=== PATIENT | male | born 1965 | race Two or more races ===

== ENCOUNTER 2020-11-10 11:53 | Outpatient (REF) | payer OTHER, MEDICARE, SELFPAY ==
[2020-11-10 13:08] LABS: Glucose Urine UA NEG (NEG); Leukocyte Esterase Urine NEG (NEG); Nitrite Urine NEG (NEG); Specific Gravity - Urine 1.025 (1.005-1.025); Urine Blood NEG (NEG); Urine Ketones 5 MG/DL (NEG); Urine Protein NEG (NEG-TRACE)
[2020-11-10 13:11] LABS: Appearance Urine CLEAR; Color Urine YELLOW
== END 2020-11-10 11:54 | disposition home or self-care (01) ==
LOC: HO.LNP 11:53
PROVIDERS: Visit Provider Family Medicine
DX: Z00.00 Encounter for general adult medical examination without abnormal findings (principal); R41.82 Altered mental status, unspecified; R30.0 Dysuria
CPT/HCPCS: 81003; 87086

== ENCOUNTER 2021-07-27 09:53 | Outpatient (REF) | payer OTHER, MEDICARE, SELFPAY ==
[2021-07-27 11:29] LABS: Hematocrit 43.4 % (42.0-52.0); Hemoglobin 13.7 g/dl (14.0-18.0); Mean Corpuscular HGB Conc 31.6 g/dl (31.0-36.0); Mean Corpuscular Hemoglobin 28.1 pg (27.0-33.0); Mean Corpuscular Volume 88.9 fL (80.0-98.0); Mean Platelet Volume 11.3 fL (9.4-12.4); Platelet Count 199 X10*3/uL (160-400); Red Blood Count 4.88 X10*6/uL (4.60-5.80); Red Cell Distribution Width 13.9 % (11.0-16.0); White Blood Count 6.1 X10*3/uL (4.8-10.8)
[2021-07-27 11:46] LABS: Alanine Aminotransferase 16 U/L (0-40); Alkaline Phosphatase 67 U/L (39-117); Anion Gap 11 (12-20); Aspartate Amino Transferase 12 U/L (5-37); Bilirubin Total 0.2 mg/dL (0.0-1.0); Blood Urea Nitrogen 26 mg/dL (9-16); Calcium 9.5 mg/dL (8.4-10.2); Carbon Dioxide 30 mmol/L (22-29); Chloride 104 mmol/L (96-108); Cholesterol 131 mg/dL; Estimated Glomerular Filt Rate 48; Glucose Random 261 mg/dL (60-115); HDL Cholesterol 35 mg/dL; LDL Cholesterol Calculated 71 mg/dl; Potassium 3.8 mmol/L (3.3-5.1); Sodium 141 mmol/L (135-145); Total Protein 7.1 g/dL (6.5-8.0); Triglycerides 129 mg/dL
[2021-07-27 12:05] LABS: Prostate Specific Antigen Scr 0.32 ng/mL (<0.05-4.0)
== END 2021-07-27 09:54 | disposition home or self-care (01) ==
LOC: HO.WFDLDS 09:53
PROVIDERS: Visit Provider Hospitalist
DX: Z00.00 Encounter for general adult medical examination without abnormal findings (principal); Z12.5 Encounter for screening for malignant neoplasm of prostate
CPT/HCPCS: 36415; 80053; 80061; 84153; 84443; 85027

== ENCOUNTER 2021-11-28 12:03 | Outpatient (REF) | payer OTHER, MEDICARE, SELFPAY ==
[2021-11-28 13:45] LABS: Anion Gap 13 (12-20); Blood Urea Nitrogen 21 mg/dL (9-16); Calcium 9.2 mg/dL (8.4-10.2); Carbon Dioxide 29 mmol/L (22-29); Chloride 102 mmol/L (96-108); Estimated Glomerular Filt Rate > 60; Glucose Random 170 mg/dL (60-115); Sodium 140 mmol/L (135-145)
== END 2021-11-28 12:04 | disposition home or self-care (01) ==
LOC: HO.WFDLDS 12:03
PROVIDERS: Visit Provider Hospitalist
DX: R74.8 Abnormal levels of other serum enzymes (principal)
CPT/HCPCS: 36415; 80048

== ENCOUNTER 2022-08-22 12:42 | Outpatient (REF) | payer OTHER, MEDICARE, SELFPAY ==
[2022-08-22 14:25] LABS: Hematocrit 46.2 % (42.0-52.0); Hemoglobin 14.9 g/dl (14.0-18.0); Mean Corpuscular HGB Conc 32.3 g/dl (31.0-36.0); Mean Corpuscular Volume 86.7 fL (80.0-98.0); Mean Platelet Volume 10.9 fL (9.4-12.4); Platelet Count 260 X10*3/uL (160-400); Red Blood Count 5.33 X10*6/uL (4.60-5.80); White Blood Count 6.4 X10*3/uL (4.8-10.8)
[2022-08-22 15:20] LABS: Alanine Aminotransferase < 5 U/L (0-40); Albumin Level 4.4 g/dL (3.5-5.0); Alkaline Phosphatase 69 U/L (39-117); Anion Gap 13 (12-20); Aspartate Amino Transferase 12 U/L (5-37); Bilirubin Total 0.6 mg/dL (0.0-1.0); Blood Urea Nitrogen 22 mg/dL (9-16); Calcium 9.5 mg/dL (8.4-10.2); Carbon Dioxide 31 mmol/L (22-29); Chloride 101 mmol/L (96-108); Cholesterol 202 mg/dL; Estimated Glomerular Filt Rate > 60; Glucose Fasting 124 mg/dL (60-99); HDL Cholesterol 40 mg/dL; LDL Cholesterol Calculated 137 mg/dl; Potassium 4.6 mmol/L (3.3-5.1); Sodium 140 mmol/L (135-145); Total Protein 7.2 g/dL (6.5-8.0); Triglycerides 129 mg/dL
== END 2022-08-22 12:43 | disposition home or self-care (01) ==
LOC: HO.WFDLDS 12:42
PROVIDERS: Visit Provider Hospitalist
DX: Z00.00 Encounter for general adult medical examination without abnormal findings (principal); I10 Essential (primary) hypertension
CPT/HCPCS: 36415; 80053; 80061; 84443; 85027

== ENCOUNTER → 2022-11-01 22:30 | Outpatient (BNVA) | payer OTHER, MEDICARE, SELFPAY | PROVIDERS: PCP Hospitalist; Visit Provider Psychiatry & Neurology Psychiatry ==

== ENCOUNTER 2022-11-26 15:41 | Outpatient (AMB) | payer OTHER, MEDICARE, SELFPAY ==
[2022-11-26 15:45] VITALS: BP 136/70; PULSE 95; RESP 13; TEMP 36.2; O2SAT 97; BMI 33.7
--- NOTE | 2022-11-26 15:45 | MHC.PC.OV ---
Vital Signs 11/26/22 15:45 Height 5 ft 7 in Weight 215 lb 8 oz BMI 33.7 BP 136/70 Blood Pressure Location Rt brachial Position Sitting Respiration 13 Pulse 95 Pulse Source Pulse Oximeter Temp 97.2 F Temp Source Temporal Artery Scan Pulse Oximetry (%) 97 Oxygen Delivery Method Room Air Intake Visit Reasons: [facility] 12/13/22 - Battery Replacement DBS System, Preop Physical Intake Note: Patient is here for a preop physical. Foreign Food Cook Specialty Required: No Accompanied by: Self / Same As Patient Allergies Inhaled Anesthetics (Halogen Based) Allergy (Intermediate, Verified 11/26/22 16:10) rash Medication List - Last Reconciled 11/26/22 by Chris Jacques CNP atropine 1% 0 drps sublingual carbidopa-levodopa 25-100 mg 3 tabs PO carbidopa-levodopa 50-200 mg ER 1 tab PO BEDTIME donepezil 10 mg PO DAILY entacapone (Comtan) 200 mg PO .5x day lamotrigine 300 mg (2 x 150 mg) PO BEDTIME lisinopril 5 mg PO DAILY melatonin 9 mg PO BEDTIME metformin 1,000 mg (2 x 500 mg) PO BID mirabegron ER 25 mg PO DAILY simvastatin 20 mg PO DAILY walker As directed Tobacco use date assessed: 11/26/22 Dental Screening Dental Screen Date: 11/26/22 Did you have a dental visit in the last 12 months?: No Did you have a dental problem in the last 6 months where you did not have access to dental care?: No Was dental information given to patient?: Patient has dentist HPI HPI Comments History of Present Illness Details 57-year-old male presents for preop exam. He notes that he has an upcoming surgery for battery replacement of Deep Brain Stimulation unit on the right side of his chest. He has a 2nd unit to the left side of his chest He has history of Parkinson disease, type 2 diabetes, hypertension, hyperlipidemia, and asthma He notes that he takes his medications as prescribed No acute symptoms today He reports psoriasis rash to his face, arms, and trunk. He notes that the rash is mildly itchy. His PCP referred him to Dermatology on 10/2021; he states he was told by Dermatology there was no available openings. [facility] Medical History Asthma Bipolar 1 disorder Constipation Depression High blood pressure High cholesterol Parkinson disease Psoriasis Seizure Sleep apnea Type 2 diabetes mellitus Surgical History S/P deep brain stimulator placement Family History (Updated 11/26/22 @ 15:57 by Maura Ellison MA) Mother Diabetes Gastro-esophageal reflux Heart problem High blood pressure Father Prostate cancer Blood clot in vein Son Autism Food allergy Daughter Generalized anxiety disorder Eosinophilic esophagitis Other Mental health disorder Social History Housing: House Patient Tobacco Use Status: Never used Tobacco e-Cigarette/Vaping Use: Never Used Second Hand Smoke Exposure: No service: No Current occupational status: retired Current occupational exposures/hazards: No Cognitive needs: No Hearing needs: No Vision needs: No Questionnaire Thrive Questionnaire Date Thrive assessed: 08/22/22 DYLAN-7 AMB Questionnaire DYLAN-7 Date DYLAN - 7 assessed: 08/22/22 Source: Developed by Drs. Bowen Zaragoza, Hattie Og, Adonis Stephens and colleagues, with an educational elisha from [employer]. Review of Systems Const Details: Const Denies chills, Denies fatigue, Denies fever(s), Denies headache(s) and Denies weakness ENT Denies dizziness and Denies headache(s) Card Denies chest pain, Denies lightheadedness, Denies dyspnea and Denies other (Palpitations) Resp Denies cough, Denies dyspnea, Denies wheezing and Denies other ( shortness of breath) GI Denies abdominal pain, Denies melena, Denies hematochezia, Denies change in bowel habits, Denies dyspepsia and Denies nausea Denies hematuria and Denies dysuria Musc Denies abnormal gait, Denies myalgias, Denies arthralgias, Denies numbness and Denies tingling Skin/Breast Denies rash, Denies unusual bruising and Denies wounds Neuro Denies abnormal gait, Denies dizziness, Denies headache(s), Denies memory loss, Denies numbness, Denies Sensory deficit (Neuro), Denies tingling and Denies weakness Psych Denies anxiety and Denies depression Endo Denies fatigue Aller/Immun Denies wheezing Physical exam (Primary Care) Vital Signs: Last Vital Signs Temp 97.2 F 11/26/22 15:45 Pulse 95 11/26/22 15:45 Resp 13 11/26/22 15:45 BP 136/70 11/26/22 15:45 Pulse Ox 97 11/26/22 15:45 Oxygen Delivery Method Room Air 11/26/22 15:45 BMI result Body Mass Index 33.7 Tobacco/Smoking Status: Tobacco use Status Tobacco use date assessed 11/26/22 11/26/22 15:58 Patient Tobacco Use Status Never used Tobacco 11/26/22 15:58 e-Cigarette/Vaping Use Never Used 11/26/22 15:58 Thrive Assessment: Date of Thrive Assessment Date Thrive assessed 08/22/22 11/26/22 15:58 Const Other: General: no acute distress and well developed Nutritional Appearance: well nourished Orientation/consciousness: patient oriented x3 HENMT Head: Yes normocephalic and Yes atraumatic Eyes General: appearance normal, both eyes and all related structures Pupils: Equal, round and reactive pupils present EOM: EOMs intact bilaterally Resp Effort & Inspection: normal respiratory effort Auscultation: clear to auscultation bilaterally Cardio Rate: regular rate Rhythm: regular rhythm Heart sounds: S1 normal heart sound present, S2 normal heart sound present, no gallops, no murmurs and no rubs GI Palpation (GI): No Abdominal aortic bruit present, Soft to palpation, nontender, No hepatosplenomegaly present and No Rebound tenderness present Auscultation: normal bowel sounds General: Yes no CVA tenderness Back/Spine/Pelvis Back: no CVA tenderness Cervical Spine: cervical ROM normal and No Cervical spine tenderness Thoracic/Lumbar Spine: thoraco-lumbar ROM normal, No pain with thoraco-lumbar ROM, No thoracic spinal tenderness and No lumbar spinal tenderness Extrem General: Yes normal to inspection, No edema and No calf tenderness Skin General: warm and dry. Normal skin color. Normal skin turgor Lesions: no lesions Rashes: Dry, silvery patches to the face, forearms, and trunk; consistent with psoriasis Trauma: no lacerations or abrasions Wounds: no wounds Nails: normal Neuro General: patient oriented x3, unsteady gait Cranial nerves: Yes Equal, round and reactive pupils present Cognition (Neuro): normal cognition Gait exam (Neuro): Unsteadyl gait present Sensory Exam: No Sensory deficit (Neuro) Affect: normal affect Assessment and Plan Assessment & Plan (1) Preop examination: Code(s): Z01.818 - Encounter for other preprocedural examination Plan: Physical exam normal per baseline Patient is medically stable at this time (2) Psoriasis: Code(s): L40.9 - Psoriasis, unspecified Plan: Reports psoriasis rash to his face, arms, and trunk. He notes that the rash is mildly itchy. His PCP referred him to Dermatology on 10/2021; he states he was told by Dermatology there was no available openings. Dry, silvery patches to the face, forearms, and trunk; consistent with psoriasis Use mild soap and apply lotion to dry skin Referred to dermatology Follow-up with worsening signs and symptoms Follow-up with PCP in 3 months for diabetes and hypertension Verbalized understanding and agreed with treatment plan. Orders: Referrals Dermatology Referral L40.9 - Psoriasis, unspecified Coding Level of Care Code Est Pt Level 3 (82701) Diagnoses Preop examination Z01.818 Psoriasis L40.9
== END 2022-11-26 16:28 | disposition home or self-care (01) ==
PROVIDERS: PCP Hospitalist; Visit Provider Nurse Practitioner Family
DX: Z01.818 Encounter for other preprocedural examination (principal); L40.9 Psoriasis, unspecified
CPT/HCPCS: 99213

== ENCOUNTER 2023-03-07 15:00 | Outpatient (AMB) | payer OTHER, MEDICARE, SELFPAY ==
--- NOTE | 2023-03-07 14:24 | MHC.OFFVISPS ---
Intake Intake Visit Reasons: depression Allergies Inhaled Anesthetics (Halogen Based) Allergy (Intermediate, Verified 11/26/22 16:10) rash Medication List - Last Reconciled 03/07/23 by Kaz Jackson MD atropine 1% 0 drps sublingual carbidopa-levodopa 25-100 mg 3 tabs PO carbidopa-levodopa 50-200 mg ER 1 tab PO BEDTIME donepezil 10 mg PO DAILY entacapone (Comtan) 200 mg PO .5x day lamotrigine 300 mg (2 x 150 mg) PO BEDTIME lisinopril 5 mg PO DAILY metformin 1,000 mg (2 x 500 mg) PO BID mirabegron ER 25 mg PO DAILY simvastatin 20 mg PO DAILY walker As directed HPI- Psychiatric Chief Complaint: depression HPI Narrative: pt seen telehealth mood stable in the background. Patient somewhat difficult to understand he remains independent with ADLs he does use a walker history of bipolar disorder manic episodes but no manic or significant depressive episode an extended period of time patient is state on Lamictal he is on clonazepam 0.5 mg at bedtime to be discontinued Past Psychiatric History: hx of bipolar disorder Mental Status Exam Mental Status Exam Narrative: Speech slurred and halting Patient Appearance: Fatigued Level of Consciousness: Awake Patient Behavior: Appropriate Mood Description: Calm Telehealth Telehealth Location of provider rendering services: practice address Location of patient: address on file Patient Identification confirmed using: Name, : Yes Telehealth method: video Patient verbally consented to treatment: Yes Patient verbally consented to billing insurance company: Yes Minutes spent on Phone/Video with Pt.: 15 Assessment and Plan Assessment & Plan (1) Bipolar 1 disorder: Status: Acute Code(s): F31.9 - Bipolar disorder, unspecified (2) Parkinson disease: Status: Acute Code(s): G20 - Parkinson's disease Plan Continue Lamictal encourage discontinuation clonazepam has progressed Parkinson's disease remains at home may end up needing nursing care at some point difficulty with ambulation swallowing had early progressive Parkinson's disease his being taking care of at home Medications: Refilled lamotrigine 300 mg (2 x 150 mg) PO BEDTIME 180 tabs 1RF Counseling and coordination of Care Medication management counseling: Effectiveness, Side effects and Dosing range Diagnosis and Prognosis Counseling: Adequacy of current interventions Details: I spent [] minutes reviewing the record, seeing the patient and documenting in the medical record. Counseling provided to the patient/caregiver as outlined below. Addressed patient/caregiver concerns regarding current medication regime including effective adherence. Addressed patient/caregiver concerns regarding diagnosis and prognosis including accuracy of diagnosis, prognosis over time, impact of diagnosis. Addressed patient/caregiver concerns regarding impact of recent stressors. [facility] Medical History (Updated 04/14/23 @ 16:21 by Kaz Jackson MD) Bipolar 1 disorder Constipation Psoriasis High blood pressure High cholesterol Depression Seizure Asthma Sleep apnea Type 2 diabetes mellitus Parkinson disease Surgical History S/P deep brain stimulator placement Family History (Updated 11/26/22 @ 15:57 by Maura Ellison MA) Mother Diabetes Gastro-esophageal reflux Heart problem High blood pressure Father Prostate cancer Blood clot in vein Son Autism Food allergy Daughter Generalized anxiety disorder Eosinophilic esophagitis Other Mental health disorder Social History Housing: House Patient Tobacco Use Status: Never used Tobacco e-Cigarette/Vaping Use: Never Used Second Hand Smoke Exposure: No service: No Current occupational status: retired Current occupational exposures/hazards: No Cognitive needs: No Hearing needs: No Vision needs: No Coding Level of Care Code Est Pt Level 3 (01900) Diagnoses Bipolar 1 disorder F31.9 Parkinson disease G20
== END 2023-03-07 15:27 | disposition home or self-care (01) ==
LOC: HO.HOP 15:00
PROVIDERS: PCP Hospitalist; Visit Provider Psychiatry & Neurology Psychiatry
DX: F31.31 Bipolar disorder, current episode depressed, mild (principal); G20.A1 Parkinson's disease without dyskinesia, without mention of fluctuations
CPT/HCPCS: 99213

== ENCOUNTER → 2023-03-07 15:00 | Outpatient (BNVA) | payer OTHER, MEDICARE, SELFPAY | PROVIDERS: PCP Hospitalist; Visit Provider Psychiatry & Neurology Psychiatry | DX: F31.9 Bipolar disorder, unspecified (principal); G20.A1 Parkinson's disease without dyskinesia, without mention of fluctuations; Z96.82 Presence of neurostimulator | CPT/HCPCS: 99212 ==

== ENCOUNTER 2023-10-25 16:57 | Outpatient (AMB) | payer OTHER, MEDICARE, SELFPAY ==
[2023-10-25 17:06] VITALS: BP 130/76; PULSE 92; O2SAT 96; BMI 36.8
--- NOTE | 2023-10-25 17:06 | MHC.PC.OV ---
Vital Signs 10/25/23 17:06 Height 5 ft 7 in Weight 235 lb BMI 36.8 BP 130/76 Blood Pressure Location Lt brachial Position Sitting Pulse 92 Pulse Source Pulse Oximeter Pulse Oximetry (%) 96 Oxygen Delivery Method Room Air Intake Visit Reasons: diabetic f/u Intake Note: Patient is here for diabetic check up. Allergies Inhaled Anesthetics (Halogen Based) Allergy (Intermediate, Verified 10/25/23 17:18) rash Medication List - Last Reviewed 10/25/23 by Fabiola Mcmanus CMA carbidopa-levodopa 25-100 mg 3 tabs PO carbidopa-levodopa 50-200 mg ER 1 tab PO BEDTIME donepezil 10 mg PO DAILY entacapone (Comtan) 200 mg PO .5x day lamotrigine 300 mg (2 x 150 mg) PO BEDTIME lisinopril 5 mg PO DAILY melatonin 3 mg PO BEDTIME PRN metformin 1,000 mg (2 x 500 mg) PO BID mirabegron ER 25 mg PO DAILY simvastatin 20 mg PO DAILY walker As directed Tobacco use date assessed: 10/25/23 Dental Screening Dental Screen Date: 10/25/23 Did you have a dental visit in the last 12 months?: No Did you have a dental problem in the last 6 months where you did not have access to dental care?: No Was dental information given to patient?: Patient has dentist HPI HPI Comments History of Present Illness Details 58-year-old male presents for diabetes follow-up He does not currently has a PCP. His former PCP is NORBERTO who is no longer with the practice. His last office visit with his PCP was in 08/22/2022. His last A1c was 7.0 in 08/29/2021 He was on Metformin 1000mg BID which he notes he has not taken after he ran out of refill several months ago No acute symptoms [facility] Medical History (Updated 10/25/23 @ 17:26 by Chris Jacques CNP) Bipolar 1 disorder Constipation Psoriasis High blood pressure High cholesterol Depression Seizure Asthma Sleep apnea Type 2 diabetes mellitus Parkinson disease Surgical History S/P deep brain stimulator placement Family History (Updated 11/26/22 @ 15:57 by HU Portillo) Mother Diabetes Gastro-esophageal reflux Heart problem High blood pressure Father Prostate cancer Blood clot in vein Son Autism Food allergy Daughter Generalized anxiety disorder Eosinophilic esophagitis Other Mental health disorder Social History Housing: House Patient Tobacco Use Status: Never used Tobacco e-Cigarette/Vaping Use: Never Used Second Hand Smoke Exposure: No service: No Current occupational status: retired Current occupational exposures/hazards: No Cognitive needs: No Hearing needs: No Vision needs: No Questionnaire PHQ-9 Over the last 2 weeks, how often have you been bothered by any of the following problems? 1. Little interest or pleasure in doing things: not at all 2. Feeling down, depressed, or hopeless: not at all 3. Trouble falling or staying asleep, or sleeping too much: not at all 4. Feeling tired or having little energy: not at all 5. Poor appetite or overeating: not at all 6. Feeling bad about yourself - or that you are a failure or have let yourself or your family down: not at all 7. Trouble concentrating on things, such as reading the newspaper or watching television: not at all 8. Moving or speaking so slowly that other people could have noticed. Or the opposite - being so fidgety or restless that you have been moving around a lot more than usual: not at all 9. Thoughts that you would be better off or of hurting yourself in some way: not at all Total score: 0 Depression Screening Interpretation: Negative Depression Screening Done: Yes Source: Developed by Drs. Bowen Zaragoza, Hattie Og, Adonis Stephens and colleagues, with an educational elisha from [employer]. Thrive Questionnaire Date Thrive assessed: 10/25/23 I am a: Patient What is your living situation today?: I have a steady place to live Within the past 12 months, did the food you bought not last and you didn't have the money to get more?: Never true Within the past 12 months, did you worry whether your food would run out before you got money to buy more?: Never true Do you have trouble paying for medicines?: No Do you have trouble getting transportation to medical appointments?: No Do you have trouble paying your heating and electricity bill?: No Do you have trouble taking care of your child, family member or friend?: No Do you have trouble with day-to-day activities such as bathing, preparing meals, shopping, managing finances, etc.?: No Are you currently unemployed and looking for a job?: No Are you interested in more education?: No THRIVE Score: 0 DYLAN-7 AMB Questionnaire DYLAN-7 Date DYLAN - 7 assessed: 10/25/23 Feeling nervous, anxious, or on edge: 0 = Not at all Not being able to stop or control worryin = Not at all Worrying too much about different things: 0 = Not at all Trouble relaxin = Not at all Being so restless that it is hard to sit still: 0 = Not at all Becoming easily annoyed or irritable: 0 = Not at all Feeling afraid as if something awful might happen: 0 = Not at all Total DYLAN-7 score (0-4 normal; 5-9 mild; 10-14 moderate; 15-21 severe): 0 Source: Developed by Drs. Bowen Zaragoza, Hattie Og, Adonis Stephens and colleagues, with an educational elisha from [employer]. Review of Systems Const Details: Const Denies chills, Denies fatigue, Denies fever(s), Denies headache(s) and Denies weakness ENT Denies dizziness and Denies headache(s) Card Denies chest pain, Denies lightheadedness, Denies dyspnea and Denies other (Palpitations) Resp Denies cough, Denies dyspnea, Denies wheezing and Denies other ( shortness of breath) GI Denies abdominal pain, Denies melena, Denies hematochezia, Denies change in bowel habits, Denies dyspepsia and Denies nausea Denies hematuria and Denies dysuria Musc Denies abnormal gait, Denies myalgias, Denies arthralgias, Denies numbness and Denies tingling Skin/Breast Denies rash, Denies unusual bruising and Denies wounds Neuro Denies abnormal gait, Denies dizziness, Denies headache(s), Denies memory loss, Denies numbness, Denies Sensory deficit (Neuro), Denies tingling and Denies weakness Psych Denies anxiety, Denies depression, Denies memory loss Endo Denies cold intolerance, Denies fatigue, Denies heat intolerance, Denies polydipsia and Denies polyuria Aller/Immun Denies wheezing Physical exam (Primary Care) Vital Signs: Last Vital Signs Pulse 92 10/25/23 17:06 BP 130/76 10/25/23 17:06 Pulse Ox 96 10/25/23 17:06 Oxygen Delivery Method Room Air 10/25/23 17:06 BMI result Body Mass Index 36.8 Tobacco/Smoking Status: Tobacco use Status Tobacco use date assessed 10/25/23 10/25/23 17:11 Patient Tobacco Use Status Never used Tobacco 10/25/23 17:07 e-Cigarette/Vaping Use Never Used 10/25/23 17:07 PHQ-9: PHQ-9 Score PHQ-9: Total score 0 10/25/23 17:11 Depression Screening Interpretation: Negative Thrive Assessment: Date of Thrive Assessment Date Thrive assessed 10/25/23 10/25/23 17:11 Const Other: General: no acute distress and well developed Nutritional Appearance: well nourished Orientation/consciousness: patient oriented x3 HENMT Head: Yes normocephalic and Yes atraumatic Eyes General: appearance normal, both eyes and all related structures Pupils: Equal, round and reactive pupils present EOM: EOMs intact bilaterally Resp Effort & Inspection: normal respiratory effort Auscultation: clear to auscultation bilaterally Cardio Rate: regular rate Rhythm: regular rhythm Heart sounds: S1 normal heart sound present, S2 normal heart sound present, no gallops, no murmurs and no rubs GI Palpation (GI): No Abdominal aortic bruit present, Soft to palpation, nontender, No hepatosplenomegaly present and No Rebound tenderness present Auscultation: normal bowel sounds General: Yes no CVA tenderness Back/Spine/Pelvis Back: no CVA tenderness Cervical Spine: cervical ROM normal and No Cervical spine tenderness Thoracic/Lumbar Spine: thoraco-lumbar ROM normal, No pain with thoraco-lumbar ROM, No thoracic spinal tenderness and No lumbar spinal tenderness Extrem General: Yes normal to inspection, No edema and No calf tenderness Skin General: warm and dry. Normal skin color. Normal skin turgor Neuro General: patient oriented x3, gait normal and no focal neuro deficit Cranial nerves: Yes Equal, round and reactive pupils present Cognition (Neuro): normal cognition Gait exam (Neuro): Normal gait present Sensory Exam: No Sensory deficit (Neuro) Psych Appearance: grossly normal Affect: normal affect Attitude: cooperative Thought process: Normal thought process present Results AMB Hemoglobin A1c AMB Hemoglobin A1c 7.2 % Last Edit by Fabiola Mcmanus CMA on 10/25/23 17:26 Assessment and Plan Assessment & Plan (1) High blood pressure: Code(s): I10 - Essential (primary) hypertension Plan: Blood pressure is 130/76, slightly above goal of less than 130/80 Continue to take lisinopril 5 mg daily Low-sodium diet encouraged Advised to establish with of our PCPs for management of his chronic conditions Return with symptoms or concerns Verbalized understanding and agreed with the treatment plan (2) Type 2 diabetes mellitus: Code(s): E11.9 - Type 2 diabetes mellitus without complications Qualifiers: Diabetes mellitus skilled nursing insulin use: without skilled nursing use Diabetes mellitus complication status: without complication Qualified Code(s): E11.9 - Type 2 diabetes mellitus without complications Plan: A1c today is 7.2%, slightly above goal of less than 7.0%. Previous A1c was 7.0 % in 08/2021 Metformin 500 mg daily ordered. Advised to take as prescribed. Instructed on the risks, benefits, and potential adverse reactions of the medication ADA diet and routine exercise encouraged Follow-up within 1-3 months for transfer of care with one of our PCPs Verbalized understanding and agreed with the treatment plan Medications: New metformin 500 mg PO DAILY 30 days 30 tabs 3RF Discontinued metformin Discontinued Reason: Doctor's Order 1,000 mg (2 x 500 mg) PO BID 360 tabs 3RF E11.9 - Type 2 diabetes mellitus without complications Coding Level of Care Code Est Pt Level 4 (25028) Complex EM visit Add On G2211 Diagnoses High blood pressure I10 Type 2 diabetes mellitus without complication, without long-term current use of insulin E11.9 Diabetes mellitus ocean transportation intermediary insulin use: without ocean transportation intermediary use Diabetes mellitus complication status: without complication
== END 2023-10-25 17:40 | disposition home or self-care (01) ==
PROVIDERS: PCP Hospitalist; Visit Provider Nurse Practitioner Family
DX: I10 Essential (primary) hypertension (principal); E11.9 Type 2 diabetes mellitus without complications
CPT/HCPCS: 83036; 99214; G2211

== ENCOUNTER 2023-11-04 15:11 | Outpatient (AMB) | payer OTHER, SELFPAY ==
--- NOTE | 2023-11-04 12:23 | A.OFFPSYCH_ITS ---
Intake Intake Visit Reasons: depression Allergies Inhaled Anesthetics (Halogen Based) Allergy (Intermediate, Verified 11/28/23 15:38) rash HPI- Psychiatric Chief Complaint: depression HPI Narrative: The patient seen psychiatric follow-up telehealth appointment. Patient has a history of bipolar disorder most significant issue over the past number of years has been Parkinson's disease. Patient's mood he states has been stable he is future oriented some short-term memory difficulty and difficulty with ambulation starting and stopping. His care has been transitioned neurologically Dr. Davis at [facility] he does have a vagal nerve stimulator. Past Psychiatric History: hx of bipolar disorder Mental Status Exam Mental Status Exam Narrative: Speech slurred and halting difficult to understand Patient Appearance: Fatigued Level of Consciousness: Awake Patient Behavior: Appropriate Mood Description: Calm Telehealth Telehealth Telehealth Platform: Other (please specify) (doxy) Location of provider rendering services: practice address Location of patient: address on file Patient Identification confirmed using: Name, : Yes Telehealth method: video Patient verbally consented to treatment: Yes Minutes spent on Phone/Video with Pt.: 7 Assessment and Plan Assessment & Plan (1) Bipolar 1 disorder: Status: Acute Code(s): F31.9 - Bipolar disorder, unspecified (2) Parkinson disease: Status: Acute Qualifiers: Dyskinesia presence: unspecified whether dyskinesia Fluctuating manifestations: unspecified whether manifestations fluctuate Qualified Code(s): G20.A1 - Parkinson's disease without dyskinesia, without mention of fluctuations Code(s): G20 - Parkinson's disease (3) Seizure disorder: Status: Acute Code(s): G40.909 - Epilepsy, unspecified, not intractable, without status epilepticus (4) S/P deep brain stimulator placement: Status: Acute Code(s): Z96.89 - Presence of other specified functional implants Plan No change indicated patient psychiatrically stable more neurologically impaired patient see if PCP/neurologist will follow Medications: Refilled lamotrigine 300 mg (2 x 150 mg) PO BEDTIME 180 tabs 1RF Counseling and coordination of Care Details-Self Mgmt counseling: Patient generally stable somewhat demoralized at times regarding his situation but has generally been coping over time remains at his family's house Details: I spent [] minutes reviewing the record, seeing the patient and documenting in the medical record. Counseling provided to the patient/caregiver as outlined below. Addressed santana lubin/caregiver concerns regarding current medication regime including effective adherence. Addressed patient/caregiver concerns regarding diagnosis and prognosis including accuracy of diagnosis, prognosis over time, impact of diagnosis. Addressed patient/caregiver concerns regarding impact of recent stressors. [facility] Medical History (Updated 11/28/23 @ 16:50 by AYANA Campbell) Seizure disorder STACI (obstructive sleep apnea) Elevated creatine kinase BMI 37.0-37.9, adult BMI 33.0-33.9,adult Pure hypercholesterolemia Essential hypertension Bipolar 1 disorder Constipation Psoriasis Depression Asthma Sleep apnea Type 2 diabetes mellitus Parkinson disease Surgical History (Updated 11/28/23 @ 16:43 by AYANA Campbell) S/P deep brain stimulator placement Family History (Updated 11/26/22 @ 15:57 by HU Portillo) Mother Diabetes Gastro-esophageal reflux Heart problem High blood pressure Father Prostate cancer Blood clot in vein Son Autism Food allergy Daughter Generalized anxiety disorder Eosinophilic esophagitis Other Mental health disorder Social History Housing: House Patient Tobacco Use Status: Never used Tobacco e-Cigarette/Vaping Use: Never Used Second Hand Smoke Exposure: No service: No Current occupational status: retired Current occupational exposures/hazards: No Cognitive needs: No Hearing needs: No Vision needs: No Coding Level of Care Code Tele Est Pt Level 2 (86790) Diagnoses Bipolar 1 disorder F31.9 Parkinson's disease, unspecified whether dyskinesia present, unspecified whether manifestations fluctuate G20.A1 Dyskinesia presence: unspecified whether dyskinesia Fluctuating manifestations: unspecified whether manifestations fluctuate Seizure disorder G40.909 S/P deep brain stimulator placement Z96.89
== END 2023-11-04 15:12 | disposition home or self-care (01) ==
LOC: HO.HOP 15:11
PROVIDERS: PCP Physician Assistant Medical; Visit Provider Psychiatry & Neurology Psychiatry
DX: F31.9 Bipolar disorder, unspecified (principal); G20.A1 Parkinson's disease without dyskinesia, without mention of fluctuations; G40.909 Epilepsy, unspecified, not intractable, without status epilepticus; Z96.89 Presence of other specified functional implants
CPT/HCPCS: 99212

== ENCOUNTER → 2023-11-04 15:11 | Outpatient (BNVA) | payer OTHER, MEDICARE, SELFPAY | PROVIDERS: PCP Physician Assistant Medical; Visit Provider Psychiatry & Neurology Psychiatry ==

== ENCOUNTER 2023-11-28 15:55 | Outpatient (AMB) | payer OTHER, MEDICARE, SELFPAY ==
--- NOTE | 2023-11-28 15:38 | MHC.PC.OV ---
Vital Signs 11/28/23 16:11 Height 5 ft 7 in Weight 232 lb 8 oz BMI 36.4 BP 132/82 Blood Pressure Location Rt brachial Position Sitting Respiration 14 Pulse 100 Pulse Source Pulse Oximeter Temp 97.9 F Temp Source Oral Pulse Oximetry (%) 95 Oxygen Delivery Method Room Air Intake Visit Reasons: jaun diabetes Intake Note: New patient visit Allergies Inhaled Anesthetics (Halogen Based) Allergy (Intermediate, Verified 11/28/23 15:38) rash Medication List - Last Reconciled 11/28/23 by AYANA Campbell albuterol sulfate 90 mcg/actuation 2 inhalations inhalation Q4H PRN baclofen 5 mg PO TID blood sugar diagnostic ([employer] Ultra Test strips) use as directed to check blood glucose once daily carbidopa-levodopa 25-100 mg 3 tabs PO carbidopa-levodopa 50-200 mg ER 1 tab PO BEDTIME clonazepam 0.25 mg PO BEDTIME donepezil 10 mg PO DAILY entacapone 200 mg PO TID entacapone (Comtan) 200 mg PO .5x day lamotrigine 300 mg (2 x 150 mg) PO BEDTIME lisinopril 5 mg PO DAILY 90 days melatonin 3 mg PO BEDTIME PRN metformin 1,000 mg PO BID mirabegron ER 25 mg PO DAILY mirabegron ER (Myrbetriq) 25 mg PO DAILY simvastatin 20 mg PO DAILY walker As directed Tobacco use date assessed: 11/28/23 Dental Screening Dental Screen Date: 11/28/23 Did you have a dental visit in the last 12 months?: No Did you have a dental problem in the last 6 months where you did not have access to dental care?: No Was dental information given to patient?: Patient declined (patient has no teeth) HPI HPI Comments History of Present Illness Details This is a 58-year-old male with a past medical history of bipolar disorder, seizure disorder, Parkinson disease, mild intermittent asthma, type 2 diabetes, hypertension and hyperlipidemia presenting to transfer care. His prior PCP was Rita Pratt. He is accompanied by his who is a nurse. [place] [facility] [place]en by covering provider 2 weeks ago. He was diagnosed with Parkinsons about 28 years ago. He has a seizure disorder, but his last seizure was a few years ago. He has 2 deep brain stimulators. Psychiatrist-Dr. Mikey Jackson. Needs a referral to a new psychiastrist because Dr. Jackson is going to be retiring from seeing patients. Patient said Dr. Jackson is wondering if I can take over prescribing his medications until he sees a new psychiatrist. Asthma-nonsmoker. Asthma has been quiet. Needs rx for rescue inhaler because he does not have 1 at home. Type 2 diabetes-Taking 500 mg once daily. He does have a glucometer. He needs test strips so he has not been checking his sugars. Psoriasis-He needs a referral to a new police cadet. He was prescribed topical medications in the past. He has obstructive sleep apnea. He has a CPAP machine that is very old that he does not use. It has been years since he saw a specialist or had a sleep study. Age 50 he [place] [facility] [place] States he is not due to return yet. ROS: Constitutional: No unexplained weight loss, fever, chills, fatigue or night sweats.. Respiratory: No shortness of breath, cough or sputum production. Cardiovascular: No chest pain, chest pressure or chest discomfort. No palpitations or pedal edema. Gastrointestinal: No anorexia, nausea, vomiting or diarrhea. No abdominal pain or blood in stool. Physical exam: Constitutional: Alert, in no distress. Eyes: Pupils are equal, round and reactive to light Neck: Supple, Full range of motion. No lymphadenopathy. Respiratory: Clear to auscultation. Cardiovascular: S1 S2 regular. No murmurs. Neurologic: Ambulates with walker. Dysarthria. Resting hand tremor. Skin: Psoriatic lesions on forearms Extremities: Warm and well perfused. No clubbing, cyanosis or edema. Psychiatric: Normal mood and affect [facility] Medical History (Updated 11/28/23 @ 16:50 by AYANA Campbell) Seizure disorder STACI (obstructive sleep apnea) Elevated creatine kinase BMI 37.0-37.9, adult BMI 33.0-33.9,adult Pure hypercholesterolemia Essential hypertension Bipolar 1 disorder Constipation Psoriasis Depression Asthma Sleep apnea Type 2 diabetes mellitus Parkinson disease Surgical History (Updated 11/28/23 @ 16:43 by AYANA Campbell) S/P deep brain stimulator placement Family History (Updated 11/26/22 @ 15:57 by Maura Ellison [facility]) Mother Diabetes Gastro-esophageal reflux Heart problem High blood pressure Father Prostate cancer Blood clot in vein Son Autism Food allergy Daughter Generalized anxiety disorder Eosinophilic esophagitis Other Mental health disorder Social History Housing: House Patient Tobacco Use Status: Never used Tobacco e-Cigarette/Vaping Use: Never Used Second Hand Smoke Exposure: No service: No Current occupational status: retired Current occupational exposures/hazards: No Cognitive needs: No Hearing needs: No Vision needs: No Questionnaire PHQ-9 Over the last 2 weeks, how often have you been bothered by any of the following problems? 1. Little interest or pleasure in doing things: not at all 2. Feeling down, depressed, or hopeless: not at all 3. Trouble falling or staying asleep, or sleeping too much: several days 4. Feeling tired or having little energy: not at all 5. Poor appetite or overeating: not at all 6. Feeling bad about yourself - or that you are a failure or have let yourself or your family down: not at all 7. Trouble concentrating on things, such as reading the newspaper or watching television: not at all 8. Moving or speaking so slowly that other people could have noticed. Or the opposite - being so fidgety or restless that you have been moving around a lot more than usual: not at all 9. Thoughts that you would be better off or of hurting yourself in some way: not at all Total score: 1 Depression Screening Interpretation: Negative Depression Screening Done: Yes 34283 - PHQ-9 Billing: Yes Source: Developed by Drs. Bowen Zaragoza, Hattie Og, Adonis Stephens and colleagues, with an educational elisha from [employer]. Thrive Questionnaire Date Thrive assessed: 11/28/23 I am a: Patient What is your living situation today?: I have a steady place to live Within the past 12 months, did the food you bought not last and you didn't have the money to get more?: Never true Within the past 12 months, did you worry whether your food would run out before you got money to buy more?: Never true Do you have trouble paying for medicines?: No Do you have trouble getting transportation to medical appointments?: No Do you have trouble paying your heating and electricity bill?: No Do you have trouble taking care of your child, family member or friend?: No Do you have trouble with day-to-day activities such as bathing, preparing meals, shopping, managing finances, etc.?: No Are you currently unemployed and looking for a job?: No Are you interested in more education?: No Please select the resources that you would like help with: None Currently or been in a relationship where the following occur: No concerns reported THRIVE Score: 0 AUDIT C Alcohol Use Questionnaire (AUDIT-C) 1. How often do you have a drink containing alcohol?: Never 3. How often do you have six or more drinks on one occasion?: Never Total Score: 0 DYLAN-7 AMB Questionnaire DYLAN-7 Date DYLAN - 7 assessed: 11/28/23 Feeling nervous, anxious, or on edge: 0 = Not at all Not being able to stop or control worryin = Not at all Worrying too much about different things: 0 = Not at all Trouble relaxin = Not at all Being so restless that it is hard to sit still: 0 = Not at all Becoming easily annoyed or irritable: 0 = Not at all Feeling afraid as if something awful might happen: 0 = Not at all Total DYLAN-7 score (0-4 normal; 5-9 mild; 10-14 moderate; 15-21 severe): 0 Source: Developed by Drs. Bowen Zaragoza, Hattie Og, Adonis Stephens and colleagues, with an educational elisha from [employer]. DYLAN-7 Assessment Billing DYLAN-7 Assessment Tool: DYLAN-7 Assessment 93609 Physical exam (Primary Care) Vital Signs: Last Vital Signs Temp 97.9 F 11/28/23 16:11 Pulse 100 11/28/23 16:11 Resp 14 11/28/23 16:11 BP 132/82 11/28/23 16:11 Pulse Ox 95 11/28/23 16:11 Oxygen Delivery Method Room Air 11/28/23 16:11 BMI result Body Mass Index 36.4 Tobacco/Smoking Status: Tobacco use Status Tobacco use date assessed 11/28/23 11/28/23 16:11 Patient Tobacco Use Status Never used Tobacco 11/28/23 15:39 e-Cigarette/Vaping Use Never Used 11/28/23 15:39 PHQ-9: PHQ-9 Score PHQ-9: Total score 1 11/28/23 16:39 Depression Screening Interpretation: Negative Thrive Assessment: Date of Thrive Assessment Date Thrive assessed 11/28/23 11/28/23 16:20 Currently or been in a relationship where the following occur: No concerns reported Assessment and Plan Assessment & Plan (1) Asthma: Code(s): J45.909 - Unspecified asthma, uncomplicated Qualifiers: Asthma severity: mild Asthma persistence: intermittent Asthma complication type: uncomplicated Qualified Code(s): J45.20 - Mild intermittent asthma, uncomplicated (2) Parkinson disease: Code(s): G20 - Parkinson's disease Qualifiers: Dyskinesia presence: unspecified whether dyskinesia Fluctuating manifestations: unspecified whether manifestations fluctuate Qualified Code(s): G20.A1 - Parkinson's disease without dyskinesia, without mention of fluctuations (3) Psoriasis: Code(s): L40.9 - Psoriasis, unspecified (4) Type 2 diabetes mellitus: Code(s): E11.9 - Type 2 diabetes mellitus without complications Qualifiers: Diabetes mellitus terminal block assembler insulin use: without alf use Diabetes mellitus complication status: without complication Qualified Code(s): E11.9 - Type 2 diabetes mellitus without complications (5) Bipolar 1 disorder: Code(s): F31.9 - Bipolar disorder, unspecified (6) Essential hypertension: Code(s): I10 - Essential (primary) hypertension (7) Pure hypercholesterolemia: Code(s): E78.00 - Pure hypercholesterolemia, unspecified (8) STACI (obstructive sleep apnea): Code(s): G47.33 - Obstructive sleep apnea (adult) (pediatric) Plan: Mild intermittent asthma Prescribed albuterol 2 puffs every 4 hours as needed for cough, wheezing and shortness of breath. Parkinson's disease Continue management per Neurology. Psoriasis Referred to [facility]. Type 2 diabetes Last hemoglobin A1c 7.2%. Metformin 500 mg daily was restarted because he had run out of his prescription for a few months before this. Sent test strips so he can check blood sugars. He will return for blood work in 2 months. He has eye exams annually. Bipolar disorder I can take over prescribing medications temporarily until patient is seen by a new psychiatrist after Dr. Jackson is no longer seeing him. Hypertension Near goal today. Monitor. Continue lisinopril 5 mg. Hyperlipidemia Patient is on simvastatin 20 mg. He verifies he was taking it when he had lab work in August which showed LDL 137 with a goal of less than 100. Repeat fasting labs in 2 months. If LDL is not at goal I will adjust his medication. Recommended Mediterranean diet. STACI Referred to sleep Medicine anew. Orders: Orders Basic Metabolic Panel Today E11.9 - Type 2 diabetes mellitus without complications, E78.00 - Pure hypercholesterolemia, unspecified, I10 - Essential (primary) hypertension Lipid Panel Today E11.9 - Type 2 diabetes mellitus without complications, E78.00 - Pure hypercholesterolemia, unspecified, I10 - Essential (primary) hypertension Hemoglobin A1c 2 Months E11.9 - Type 2 diabetes mellitus without complications, E78.00 - Pure hypercholesterolemia, unspecified, I10 - Essential (primary) hypertension Microalbumin, Random (w Creat) Today E11.9 - Type 2 diabetes mellitus without complications, E78.00 - Pure hypercholesterolemia, unspecified, I10 - Essential (primary) hypertension Prostate Specific Antigen Scr Today Z12.5 - Encounter for screening for malignant neoplasm of prostate Referrals Dermatology Referral L40.9 - Psoriasis, unspecified Sleep Medicine Referral G47.33 - Obstructive sleep apnea (adult) (pediatric) Medications: New blood sugar diagnostic ([employer] Ultra Test strips) use as directed to check blood glucose once daily 100 ea 5RF albuterol sulfate 90 mcg/actuation 2 inhalations inhalation Q4H PRN 8.5 grams 3RF shortness of breath or wheezing Changed From lisinopril 5 mg PO DAILY 30 tabs 0RF I10 - Essential (primary) hypertension To lisinopril 5 mg PO DAILY 90 days 90 tabs 3RF I10 - Essential (primary) hypertension From metformin 1,000 mg PO BID To metformin 500 mg PO DAILY Coding Level of Care Code Est Pt Level 4 (81356) Complex EM visit Add On G2211 Diagnoses Mild intermittent asthma without complication J45.20 Asthma severity: mild Asthma persistence: intermittent Asthma complication type: uncomplicated Parkinson's disease, unspecified whether dyskinesia present, unspecified whether manifestations fluctuate G20.A1 Dyskinesia presence: unspecified whether dyskinesia Fluctuating manifestations: unspecified whether manifestations fluctuate Psoriasis L40.9 Type 2 diabetes mellitus without complication, without long-term current use of insulin E11.9 Diabetes mellitus alf insulin use: without terminal block assembler use Diabetes mellitus complication status: without complication Bipolar 1 disorder F31.9 Essential hypertension I10 Pure hypercholesterolemia E78.00 STACI (obstructive sleep apnea) G47.33 Additional Codes DYLAN-7 Assessment Billing - DYLAN-7 Assessment Tool: DYLAN-7 Assessment [id number] ([id number])
[2023-11-28 16:11] VITALS: BP 132/82; PULSE 100; RESP 14; TEMP 36.6; O2SAT 95; BMI 36.4
== END 2023-11-28 16:42 | disposition home or self-care (01) ==
PROVIDERS: PCP Physician Assistant Medical; Visit Provider Physician Assistant Medical
DX: J45.20 Mild intermittent asthma, uncomplicated (principal); E11.9 Type 2 diabetes mellitus without complications; F31.9 Bipolar disorder, unspecified; G20.A1 Parkinson's disease without dyskinesia, without mention of fluctuations; L40.9 Psoriasis, unspecified; I10 Essential (primary) hypertension; E78.00 Pure hypercholesterolemia, unspecified; G47.33 Obstructive sleep apnea (adult) (pediatric)
CPT/HCPCS: 99214

== ENCOUNTER 2024-03-03 15:36 | Outpatient (AMB) | payer OTHER, MEDICARE, SELFPAY ==
--- NOTE | 2024-03-03 15:39 | MHC.OFFVIS ---
Vital Signs 03/03/24 15:40 Height 5 ft 7 in Weight 228 lb 8 oz BMI 35.8 BP 122/82 Blood Pressure Location Lt brachial Position Sitting Pulse 91 Pulse Source Pulse Oximeter Pulse Oximetry (%) 95 Oxygen Delivery Method Room Air Intake Visit Reasons: INP-STACI Intake Note: Patient presents in office for a new patient evaluation for STACI. Exploration Geologist Required: No Accompanied by: Spouse Allergies Inhaled Anesthetics (Halogen Based) Allergy (Intermediate, Verified 03/03/24 15:42) rash Medication List - Last Reconciled 03/05/24 by Sari Jennings MD albuterol sulfate 90 mcg/actuation 2 inhalations inhalation Q4H PRN baclofen 5 mg PO TID blood sugar diagnostic ([employer] Ultra Test strips) use as directed to check blood glucose once daily carbidopa-levodopa 25-100 mg 2 tabs PO QID carbidopa-levodopa 50-200 mg ER 1 tab PO BEDTIME clonazepam 0.5 mg PO BEDTIME donepezil 10 mg PO DAILY entacapone 200 mg PO TID lamotrigine 300 mg (2 x 150 mg) PO BEDTIME lisinopril 5 mg PO DAILY 90 days melatonin 3 mg PO BEDTIME PRN metformin 1,000 mg PO BID mirabegron ER (Myrbetriq) 25 mg PO DAILY simvastatin 20 mg PO DAILY walker As directed HPI HPI INP-STACI: Details: 58 YO Male with 20+ years of Parkinson's history, here today with for sleep evaluation, his last study was over 5 years ago. says he is not wearing his CPAP due to the uncomfortable straps which irritate him and the mask doesn't fit him well. He is difficult to understand, helps with communication as his speech is slurred and he drools. reports his mood is better today, he is followed by Dr. Julian (Psych) for BP disorder, and has not had any manic episodes, however has been having conversations with someone at night and reports seeing illusions. He is able to complete all daily tasks with his 's help, however has been fatigued and forgetful lately. His sleep is not good, wakes at night multiples to go to the bathroom and recently broke a lamp while tossing and turning in his sleep. HPI Comments Details: 58y/o male comes for further management of Sleep apnea. . Main complaints-difficulty using CPAP Sleep questionnaire- Difficulty falling asleep-yes/no staying asleep-yes/no Number of arousals- Snoring-yes/no Witnessed apneas-yes/no Gasping arousals-yes/no Nocturia-yes/no GERD-yes/no Vivid dreams-yes/no Acting out dreams -yes/no Abnormal behavior in sleep-yes/no ABnormal movements in sleep-yes/no Morning headaches- Excessive daytime sleepiness-yes/no Daytime naps- yes/no restless legs- yes/no Hallucinations- yes/no sleep paralysis- yes/no Drop attacks- yes/no Sleep study-yes/ over 5 years ago Results AHI O2 CPAP yes/no Sleep Hygiene Sleep time goes to bed at 10pm Wake time varies coffee/stimulant no Phone Electronics not in bed Exercise no Bedroom comfort quiet [facility] Medical History (Updated 03/05/24 @ 10:28 by Sari Jennings MD) Seizure disorder STACI (obstructive sleep apnea) Elevated creatine kinase BMI 37.0-37.9, adult BMI 33.0-33.9,adult Pure hypercholesterolemia Essential hypertension Bipolar 1 disorder Constipation Psoriasis Depression Asthma Sleep apnea Type 2 diabetes mellitus Parkinson disease Surgical History S/P deep brain stimulator placement Family History Mother Diabetes Gastro-esophageal reflux Heart problem High blood pressure Father Prostate cancer Blood clot in vein Son Autism Food allergy Daughter Generalized anxiety disorder Eosinophilic esophagitis Other Mental health disorder Social History Housing: House Patient Tobacco Use Status: Never used Tobacco e-Cigarette/Vaping Use: Never Used Second Hand Smoke Exposure: No service: No Current occupational status: retired Current occupational exposures/hazards: No Cognitive needs: No Hearing needs: No Vision needs: No Review of Systems Const Details: Cooperative, tired looking male, obese and unkempt, new amaya facial hair. Reports daytime sleepiness (Naps through out the day 2-3 times for an hour.) and Reports fatigue ENT Reports no additional complaints Resp Reports cough Neuro Details: Cooperative and Oriented X3 Reports Abnormal speech present Psych Reports auditory hallucinations and Reports visual hallucinations (Has conversations with people at night.) Endo Reports fatigue Aller/Immun Reports as per HPI Physical Exam Vital Signs: Last Vital Signs Pulse 91 03/03/24 15:40 BP 122/82 03/03/24 15:40 Pulse Ox 95 03/03/24 15:40 Oxygen Delivery Method Room Air 03/03/24 15:40 BMI result Body Mass Index 35.8 Const General: cooperative, poor hygiene and tired appearing Nutritional Appearance: obese (BMI 35.8) Orientation/consciousness: patient oriented x3 Limitations: language barrier (Slurred speech, difficult to understand, his assists.) HEENT Head: Yes normal to inspection Face and sinus: Yes other (Assymetry with smile, drooping right side due to Parkinson.) Mouth: muffled voice Neck Neck: Yes normal visual inspection Resp Effort & Inspection: normal respiratory effort and able to speak in complete sentences Neuro General: patient oriented x3, moves all extremities and CN's II-XI intact bilaterally Cranial nerves: Yes Ability to bilaterally elevate shoulders present Speech: Abnormal speech present Psych Appearance: other (unkempt) Mental Status: mental status grossly normal (calm ) and other Speech and movement: Slurred speech present Affect: normal affect Attitude: cooperative Thought process: Normal thought process present Assessment & Plan Assessment & Plan (1) STACI (obstructive sleep apnea): Comment: with possible REM behvaior disorder Code(s): G47.33 - Obstructive sleep apnea (adult) (pediatric) Category: Medical Plan Repeat sleep study for reevaluation Mask fitting sleep hygiene discussed Medications: Changed From metformin 500 mg PO DAILY 90 tabs 3RF To metformin 1,000 mg PO BID Patient Instructions: Practice good sleep hygiene - no devices at night time Routine bed time Limit fluids after dinner Exercise as permitted Coding Level of Care Code New Pt Level 4 (04807) Complex EM visit Add On G2211 Diagnoses STACI (obstructive sleep apnea) G47.33
[2024-03-03 15:40] VITALS: BP 122/82; PULSE 91; O2SAT 95; BMI 35.8
== END 2024-03-03 16:06 | disposition home or self-care (01) ==
PROVIDERS: PCP Physician Assistant Medical; Visit Provider Psychiatry & Neurology Neurology
DX: G47.33 Obstructive sleep apnea (adult) (pediatric) (principal)
CPT/HCPCS: 99204

== ENCOUNTER → 2024-03-03 15:36 | Outpatient (BNVA) | payer OTHER, MEDICARE, SELFPAY | PROVIDERS: PCP Physician Assistant Medical; Visit Provider Psychiatry & Neurology Neurology ==

== ENCOUNTER 2024-03-05 11:39 | Outpatient (AMB) | payer OTHER, MEDICARE, SELFPAY ==
--- NOTE | 2024-03-05 11:48 | MHC.PC.OV ---
Vital Signs 03/05/24 11:53 Height 5 ft 7 in Weight 228 lb BMI 35.7 BP 132/62 Blood Pressure Location Rt brachial Position Sitting Pulse 109 H Pulse Source Pulse Oximeter Pulse Oximetry (%) 96 Oxygen Delivery Method Room Air Intake Visit Reasons: diabetes follow up Intake Note: Diabetes follow up Allergies Inhaled Anesthetics (Halogen Based) Allergy (Intermediate, Verified 03/05/24 11:49) rash Tobacco use date assessed: 11/28/23 Dental Screening Dental Screen Date: 11/28/23 HPI HPI Comments History of Present Illness Details This is a 58-year-old male with a past medical history of bipolar disorder, seizure disorder, Parkinson disease, mild intermittent asthma, type 2 diabetes, hypertension and hyperlipidemia presenting for follow up. Neurology-Dr. Way [place] [facility]. He was diagnosed with Parkinsons about 28 years ago. He has a seizure disorder, but his last seizure was a few years ago. He has 2 deep brain stimulators. STACI-seen by Dr. Jennings. A new center sleep study is going to be scheduled. Psychiatrist-Dr. Mikey Jackson. Needs a referral to a new psychiastrist because Dr. Jackson is going to retire. Asthma-nonsmoker. Asthma has been quiet. Type 2 diabetes-Taking metformin 500 mg once daily. A1c 7.5% today. He was at [facility] for esophageal obstruction due to impacted food a month ago. Required GI intervention. He had resolution of symptoms after procedure. ROS: Constitutional: No unexplained weight loss, fever, chills Eyes: No vision changes, blurry vision, double vision Respiratory: No shortness of breath, cough or sputum production. Cardiovascular: No chest pain Gastrointestinal: No anorexia, nausea, vomiting or diarrhea. No abdominal pain Neurologic: No headache, dizziness, syncope Physical exam: Constitutional: Alert, in no distress. Eyes: Pupils are equal, round and reactive to light Neck: Supple, Full range of motion. No lymphadenopathy. Respiratory: Clear to auscultation. Cardiovascular: S1 S2 regular. No murmurs. Neurologic: Ambulates with walker. Dysarthria. Resting hand tremor. Skin: Psoriatic lesions on forearms Extremities: Warm and well perfused. No clubbing, cyanosis or edema. Psychiatric: Normal mood and affect [facility] Medical History (Updated 03/05/24 @ 10:28 by Sari Jennings MD) Seizure disorder STACI (obstructive sleep apnea) Elevated creatine kinase BMI 37.0-37.9, adult BMI 33.0-33.9,adult Pure hypercholesterolemia Essential hypertension Bipolar 1 disorder Constipation Psoriasis Depression Asthma Sleep apnea Type 2 diabetes mellitus Parkinson disease Surgical History S/P deep brain stimulator placement Family History Mother Diabetes Gastro-esophageal reflux Heart problem High blood pressure Father Prostate cancer Blood clot in vein Son Autism Food allergy Daughter Generalized anxiety disorder Eosinophilic esophagitis Other Mental health disorder Social History Housing: House Patient Tobacco Use Status: Never used Tobacco e-Cigarette/Vaping Use: Never Used Second Hand Smoke Exposure: No service: No Current occupational status: retired Current occupational exposures/hazards: No Cognitive needs: No Hearing needs: No Vision needs: No Questionnaire Thrive Questionnaire Date Thrive assessed: 03/02/24 I am a: Patient What is your living situation today?: I have a steady place to live Within the past 12 months, did the food you bought not last and you didn't have the money to get more?: Never true Within the past 12 months, did you worry whether your food would run out before you got money to buy more?: Never true Do you have trouble paying for medicines?: No Do you have trouble getting transportation to medical appointments?: No Do you have trouble paying your heating and electricity bill?: No Do you have trouble taking care of your child, family member or friend?: No Do you have trouble with day-to-day activities such as bathing, preparing meals, shopping, managing finances, etc.?: No Are you currently unemployed and looking for a job?: No Are you interested in more education?: No Please select the resources that you would like help with: None Currently or been in a relationship where the following occur: No concerns reported THRIVE Score: 0 AUDIT C Alcohol Use Questionnaire (AUDIT-C) 1. How often do you have a drink containing alcohol?: Never 2. How many drinks containing alcohol do you have on a typical day when you are drinking?: 1 or 2 3. How often do you have six or more drinks on one occasion?: Never Total Score: 0 DYLAN-7 AMB Questionnaire DYLAN-7 Date DYLAN - 7 assessed: 11/28/23 Feeling nervous, anxious, or on edge: 0 = Not at all Not being able to stop or control worryin = Not at all Worrying too much about different things: 0 = Not at all Trouble relaxin = Not at all Being so restless that it is hard to sit still: 0 = Not at all Becoming easily annoyed or irritable: 0 = Not at all Feeling afraid as if something awful might happen: 0 = Not at all Total DYLAN-7 score (0-4 normal; 5-9 mild; 10-14 moderate; 15-21 severe): 0 Source: Developed by Drs. Bowen Zaragoza, Hattie Og, Adonis Stephens and colleagues, with an educational elisha from [employer]. Physical exam (Primary Care) Tobacco/Smoking Status: Tobacco use Status Tobacco use date assessed 11/28/23 11/28/23 16:11 Patient Tobacco Use Status Never used Tobacco 11/28/23 15:39 e-Cigarette/Vaping Use Never Used 11/28/23 15:39 Thrive Assessment: Date of Thrive Assessment Date Thrive assessed 03/02/24 03/03/24 15:36 Currently or been in a relationship where the following occur: No concerns reported Coding Level of Care Code Est Pt Level 4 (41020) Complex EM visit Add On G2211 Diagnoses Parkinson's disease, unspecified whether dyskinesia present, unspecified whether manifestations fluctuate G20.A1 Dyskinesia presence: unspecified whether dyskinesia Fluctuating manifestations: unspecified whether manifestations fluctuate Type 2 diabetes mellitus without complication, without long-term current use of insulin E11.9 Diabetes mellitus assisted insulin use: without assisted use Diabetes mellitus complication status: without complication Essential hypertension I10 Bipolar 1 disorder F31.9 Pure hypercholesterolemia E78.00 Seizure disorder G40.909 STACI (obstructive sleep apnea) G47.33 Assessment & Plan Assessment & Plan (1) Parkinson disease: Code(s): G20 - Parkinson's disease Category: Medical Qualifiers: Dyskinesia presence: unspecified whether dyskinesia Fluctuating manifestations: unspecified whether manifestations fluctuate Qualified Code(s): G20.A1 - Parkinson's disease without dyskinesia, without mention of fluctuations Plan: Continue management per Neurology. Given recent episode with food impaction I ordered a swallow study for the patient. I recommended avoiding foods that are high risk for choking like hot dogs, hard candy, hard cheeses, popcorn and having small bites of food and chewing carefully. (2) Type 2 diabetes mellitus: Code(s): E11.9 - Type 2 diabetes mellitus without complications Category: Medical Qualifiers: Diabetes mellitus assisted insulin use: without computer terminal operator use Diabetes mellitus complication status: without complication Qualified Code(s): E11.9 - Type 2 diabetes mellitus without complications Plan: Increase metformin to 500 mg twice daily. Recommended low carb, low sugar diet. Declines referral to informatics educator and dietitian. (3) Essential hypertension: Code(s): I10 - Essential (primary) hypertension Category: Medical Plan: Continue lisinopril and avoidance of caffeine and follow a low-sodium diet. (4) Bipolar 1 disorder: Code(s): F31.9 - Bipolar disorder, unspecified Category: Medical Plan: Continue current medications. Refer to Psychiatry since patient reports his psychiatrist is retiring. (5) Pure hypercholesterolemia: Code(s): E78.00 - Pure hypercholesterolemia, unspecified Category: Medical Plan: Check lipid profile today. He is fasting. Continue simvastatin. Recommended Mediterranean diet. (6) Seizure disorder: Code(s): G40.909 - Epilepsy, unspecified, not intractable, without status epilepticus Category: Medical Plan: Continue treatment regimen per Neurology. (7) STACI (obstructive sleep apnea): Comment: with possible REM behvaior disorder Code(s): G47.33 - Obstructive sleep apnea (adult) (pediatric) Category: Medical Plan: Followed by Dr. Jennings. Plan Follow up in 3 months for diabetes. Orders: Orders FL Modified Barium Swallow Today G20.A1 - Parkinson's disease without dyskinesia, without mention of fluctuations, T18.128A - Food in esophagus causing other injury, initial encounter, W44.F3XA - Food entering into or through a natural orifice, initial encounter Influenza [id number] Immunization Today Z23 - Encounter for immunization Referrals Psychiatry Referral F31.9 - Bipolar disorder, unspecified Medications: New Fluarix Triv [id number] (PF) (flu vacc [id number] 6mos up(PF)) 0.5 mL IM ONCE 0.5 mL 0RF NS Z23 - Encounter for immunization Changed From metformin 1,000 mg PO BID To metformin 500 mg PO BID 90 days 180 tabs 3RF
[2024-03-05 11:53] VITALS: BP 132/62; PULSE 109; O2SAT 96; BMI 35.7
== END 2024-03-05 12:17 | disposition home or self-care (01) ==
PROVIDERS: PCP Physician Assistant Medical; Visit Provider Physician Assistant Medical
DX: E11.9 Type 2 diabetes mellitus without complications (principal); G20.A1 Parkinson's disease without dyskinesia, without mention of fluctuations; F31.9 Bipolar disorder, unspecified; G40.909 Epilepsy, unspecified, not intractable, without status epilepticus; I10 Essential (primary) hypertension; E78.00 Pure hypercholesterolemia, unspecified; G47.33 Obstructive sleep apnea (adult) (pediatric)

== ENCOUNTER → 2024-03-05 11:39 | Outpatient (BNVA) | payer OTHER, MEDICARE, SELFPAY | PROVIDERS: PCP Physician Assistant Medical; Visit Provider Physician Assistant Medical | DX: G20.A1 Parkinson's disease without dyskinesia, without mention of fluctuations (principal); E11.9 Type 2 diabetes mellitus without complications; I10 Essential (primary) hypertension; F31.9 Bipolar disorder, unspecified; E78.00 Pure hypercholesterolemia, unspecified; G40.909 Epilepsy, unspecified, not intractable, without status epilepticus; G47.33 Obstructive sleep apnea (adult) (pediatric); Z79.84 Long term (current) use of oral hypoglycemic drugs; Z79.899 Other long term (current) drug therapy; Z23 Encounter for immunization | CPT/HCPCS: 90471; 90656 ==

== ENCOUNTER 2024-03-05 12:32 | Outpatient (REF) | payer OTHER, MEDICARE, SELFPAY ==
[2024-03-05 14:49] LABS: Anion Gap 12 (12-20); Blood Urea Nitrogen 20 mg/dL (9-16); Calcium 9.3 mg/dL (8.4-10.2); Carbon Dioxide 28 mmol/L (22-29); Chloride 103 mmol/L (96-108); Cholesterol 195 mg/dL (<200); Estimated Glomerular Filt Rate 52; Glucose Random 192 mg/dL (60-115); HDL Cholesterol 41 mg/dL (>40); LDL Cholesterol Calculated 129 mg/dL (<100); Sodium 139 mmol/L (135-145); Triglycerides 127 mg/dL (<150)
[2024-03-05 14:52] LABS: Creatinine Urine 379.52 mg/dL; Microalbum/Creatinine Ratio Ur 30.3 ug/mg cr (<30)
== END 2024-03-05 12:33 | disposition home or self-care (01) ==
LOC: HO.WFDLDS 12:32
PROVIDERS: Visit Provider Physician Assistant Medical
DX: Z12.5 Encounter for screening for malignant neoplasm of prostate (principal); E78.00 Pure hypercholesterolemia, unspecified; I10 Essential (primary) hypertension; E11.9 Type 2 diabetes mellitus without complications
CPT/HCPCS: 36415; 80048; 80061; 82043; 82570; 84153

== ENCOUNTER 2024-03-25 14:20 | Outpatient (REF) | payer MEDICARE, OTHER, SELFPAY ==
--- NOTE | ~2024-03-25 | FL_ITS ---
EXAMINATION: Modified Barium Swallow CLINICAL INFORMATION: Dysphagia COMPARISON: None TECHNIQUE: Modified barium swallow was performed under lateral fluoroscopy with patient in standing position. Barium mixed with solids and liquids of different consistencies was administered by the speech pathologist. Examination was recorded in the fluoroscopy suite. FINDINGS: Trace laryngeal penetration is seen with multiple consistencies of barium. No aspiration was observed. There is mild cricopharyngeal achalasia present. Intracranial leads are present consistent with prior surgical history of deep brain stimulation placement. FLUOROSCOPY TIME: 1 minute 42 seconds Number of Spot Images: N/A DOSE AREA PRODUCT: 1388 uGy-m2 (microgray-meter squared) FL/FL Modified Barium Swallow IMPRESSION: 1. Trace laryngeal penetration is seen with multiple consistencies of barium. No subglottic aspiration was observed. 2. Mild cricopharyngeal achalasia. 3. Status post deep brain stimulator placement. Refer to the speech therapy report for further clarification This procedure was performed by Wali Friend PA-C, and supervised by Dr. Arzate Electronically signed by: Gerard Arzate MD 04/01/2024 10:19 AM SHIRLEY
--- NOTE | 2024-03-26 08:50 | MHC.SL.IMP ---
Date of Plan of Treatment: 03/25/24 Onset of Symptoms/Illness: 01/24/24 Date Treatment Started: 03/25/24 Admitting Diagnosis: G20.A1 Parkinson's disease without dyskinesia, without mention of fluctuations T18.128A Food in esophagus causing other injury, initial encounter W44.F3XA Food entering into or through a natural orifice, initial encounter Primary Speech & Language Diagnosis: R13.12 Oropharyngeal Phase Dysphagia Reason for Today's Visit: 11817 Modified Barium Swallow Study Pre-evaluation Dietary Consistencies: Regular Pre-evaluation Liquid Consistency: Thin Pre-evaluation Medication Administration: Whole with Liquid Medical History: Modified Barium Swallow Study Fluoroscopic Evaluation of Swallowing Function CPT Code 50796 Evaluation Year: 2023 Reason for Study: Difficulty swallowing Referring Physician: Agatha PIÑA Evaluating Clinician: Tiffany Mathis MA, CCC-STEAM ROLLER OPERATOR Study Number: 1 Patient Name: Tyrell Sands Status: Outpatient, Ambulatory/Assisted Age: 58 Gender: Male Medical History Medical History (Updated 03/05/24 @ 10:28 by Sari Jennings MD) Seizure disorder STACI (obstructive sleep apnea) Elevated creatine kinase BMI 37.0-37.9, adult BMI 33.0-33.9,adult Pure hypercholesterolemia Essential hypertension Bipolar 1 disorder Constipation Psoriasis Depression Asthma Sleep apnea Type 2 diabetes mellitus Parkinson disease Surgical History S/P deep brain stimulator placement Current (pre-evaluation) Intake/Diet: Route: PO Diet Grade: Regular Liquid Consistencies: Thin Pre-Study Functional Oral Intake Scale (FOIS): 7- Total oral intake with no restrictions Pain: None reported at time of study SUBJECTIVE: Patient is a 58 year old male with history significant for bipolar d/o, seizure d/o, Parkinson?s Disease, mild intermittent asthma, type 2 diabetes, hypertension, and hyperlipidemia. Patient is s/p 2 deep brain stimulators. He is followed by Dr. Cabrera from Neurology and Sleep and Dr. Jackson from Psychiatry. Patient was recently hospitalized at [facility] for esophageal obstruction d/t food impaction 1-2 months ago, which required GI intervention w/ reported resolution of symptoms after the procedure. Patient presents today for modified barium swallow study, as referred by his primary care provider, Agatha PIÑA from [facility]. Patient reports difficulty swallowing for the past few months. He reports globus sensation at the sternal notch and coughing with both solids and liquids. He recalls having had a barium swallow study done in [place] in the past, but does not remember its findings or subsequent recommendations. Oral Motor Exam Facial Symmetry: Symmetrical Mouth Occlusion: Normal Oral-Facial Teeth Characteristics: Edentulous Oral-Facial Lip Pucker Description: Normal Oral-Facial Smile (Lips) Description: Normal Oral-Facial Puff Cheeks Description: Normal Tongue Size: Normal Tongue Excursion Description: Normal Tongue Range of Movement Description: Reduced Tongue Speed of Movement Description: Reduced Tongue Strength of Movement (against opposing pressure): Normal Tongue Movement Characteristics: Normal/Absent Tongue Movement Miscellaneous Observation: Oscillating lingual movements in the center of the oral cavity Is patient able to manage secretions?: Yes Is patient able to produce volitional cough?: Yes Food and Liquid Trials: Oral Impairment: Lip Closure: Did not test Oral Impairment: Tongue Control During Bolus Hold: Did not test Oral Impairment: Bolus Preparation/Mastication: 2=Disorganized chewing/mashing with solid pieces of bolus Oral Impairment: Bolus Transport/Lingual Motion: 0=Brisk tongue motion Oral Impairment: Oral Residue: 2=Residue collection on oral structures Oral Impairment:Initiation of Pharyngeal Swallow: 0=Bolus head at posterior angle of ramus (first hyoid excursion) Pharyngeal Impairment: Soft Palate Elevation: 0=No bolus between soft palate (SP)/pharyngeal wall (PW) Pharyngeal Impairment: Laryngeal Elevation: 0=Complete superior movement of thyroid cartilage (see description) Pharyngeal Impairment: Anterior Hyoid Excursion: 1=Partial anterior movement Pharyngeal Impairment: Epiglottic Movement: 1=Partial inversion Pharyngeal Impairment: Laryngeal Vestibular Closure:: 1=Incomplete: narrow column air/contrast in laryngeal vestibule Pharyngeal Impairment: Pharyngeal Stripping Wave: 0=Present: complete Pharyngeal Impairment: Pharyngeal Contraction: Did not test Pharyngeal Impairment: Pharyngoesophageal Segment Openin=Partial distention/partial duration: partial obstruction of flow Pharyngeal Impairment: Tongue Base (TB) Retraction: 1=Trace column of contrast/air between TB and posterior PW Pharyngeal Impairment: Pharyngeal Residue: 2=Collection of residue within or on pharyngeal structures Pharyngeal Impairment: Esophageal Clearance Upright Position: Did not test Impressions and Recommendations Clinical Observations: OBJECTIVE: Time-out: performed at 15:00 Evaluation Start: 14:30; Stop: 14:35 Patient Positioning: Seated 70-90 degrees Viewing Planes: LATERAL ONLY Contrast: MBSImP? Standardized Protocol using commercially prepared, standardized Barium viscosities, including: Varibar? THIN LIQUID (40% w/v, <15 cps) , Varibar? NECTAR (40% w/v, <150-450 cps) , Varibar? PUDDING (40% w/v, <2265-2586 cps) , 1/2 Shortbread Cookie (1 x1 x.25 ) MBSImP ID: [id number] [facility]: Lip closure for intraoral bolus containment could not be assessed due to logistical reasons not related to physiologic impairment. Tongue control during bolus hold could not be assessed due to logistical reasons not related to physiologic impairment. Bolus preparation and mastication demonstrated disorganized chewing/mashing with solid pieces of the bolus unchewed. Bolus transport/lingual motion was with brisk tongue motion. Oral residue was a collection on oral structures. Initiation of the pharyngeal swallow occurred as the bolus head reached the posterior angle of the mandibular ramus. Soft palate elevation resulted in no bolus between the soft palate and the pharyngeal wall. Laryngeal elevation demonstrated complete superior movement of the thyroid cartilage with complete approximation of the arytenoids to the epiglottic petiole. Anterior hyoid excursion demonstrated partial anterior movement. Epiglottic movement resulted in partial inversion. Laryngeal vestibular closure was incomplete, with a narrow column of air/contrast noted within the laryngeal vestibule at the height of the swallow. Pharyngeal stripping wave was present and complete. Pharyngeal contraction could not be determined due to logistical reasons not related to physiologic impairment. Pharyngoesophageal segment opening demonstrated partial distension/partial duration, with partial obstruction of bolus flow. Tongue base retraction allowed a trace column of contrast or air between the retracted tongue base and the posterior pharyngeal wall. Pharyngeal residue was a collection of residue within or on pharyngeal structures. Esophageal clearance in the upright position could not be assessed due to logistical reasons not related to physiologic impairment. Oral Impairment Score: 4 (absence of score, component 1component 2) Pharyngeal Impairment Score: 6 (absence of score, component 13) Esophageal Impairment Score: --- (absence of score, component 17) Laryngeal Penetration and Aspiration: Neither penetration nor aspiration was observed in today's study with Cookie, Pudding-thick. Penetration was observed in today's study. [place]-thick, Thin Contrast entered the airway, remained above the vocal folds, and were ejected from the airway. ASSESSMENT: Clinician Assessment: This exam was conducted by the radiologist and the speech pathologist. Patient was seated upright at 90 degrees for lateral view only and fed himself without difficulty. He trialed the following consistencies: thin (individual cup sips, rapid cup sips), nectar thick (individual cup sips, rapid cup sips), puree, regular solid. Mastication was slowed and disorganized, characterized by piece meal deglutition pattern. Brisk posterior lingual movement. Post-swallow, there was mild residue diffusely on the tongue, palate, in the floor of mouth and in the lateral sulci. Timely swallow trigger, initiated as the bolus head reached the posterior angle of ramus. No evidence of nasopharyngeal reflux. Partial epiglottic inversion and partial laryngeal vestibular closure. No evidence of aspiration or penetration with puree and regular solid textures. There was penetration above the vocal folds when patient took rapid, sequential sips of thin and nectar thick liquid, with no subsequent aspiration. Contrast cleared from the trachea spontaneously with subsequent swallows on trials of thin liquid. Contrast cleared on trials of nectar thick with cued throat clearing. No penetration noted when patient took individual sips thin and nectar thick liquid. There was mild to moderate retention on the tongue base and in the valleculae and pyriforms, with more pooling noted with liquids. Pharyngeal residue was reduced with dry swallows. The following compensatory strategies have not been used until today's study, but when employed, improved swallowing function: Bolus Volume Change eliminated Penetration Rate of Ingestion Change eliminated Penetration Additional Swallow(s) per Bolus decreased Oral Residue, Pharyngeal Residue Liquid Intake Recommendation: Thin Liquid Intake Strategies: Small Sips, No Straws Dietary Recommendations: Soft/Easy to Chew Medication Administration: Whole with Puree Please contact the pharmacy regarding appropriate crushable or liquid drug formulations that are available whenever modified delivery is recommended. Compensatory Strategies Recommended: Sitting Upright (90 deg), Double Swallow, No Straw, Small Bites and Sips, Alternate Liquids/Solids, Rate of Ingestion Change, Avoid Specific Foods Recommendation for Speech Therapy: Outpatient Speech Therapy Text Comment: Intake Recommendations: Route: PO Diet Grade: Soft and Easy to Chew Liquid Consistencies: Thin Post-Study Functional Oral Intake Scale (FOIS): 6- Total oral intake with no special preparation, but must avoid specific foods or liquid items Patient presents with mild oropharyngeal dysphagia. Prolonged and disorganized mastication pattern, secondary to edentulous status. Partial epiglottic inversion and partial laryngeal vestibular closure, with trace penetration above the vocal folds on sequential sips thin and nectar thick liquid. No penetration observed when patient took individual sips. No evidence of aspiration during this exam. Mild to moderate residue mostly cleared with dry swallows. Given patient?s lack of dentition and history of food impaction/esophageal obstruction, recommend SOFT and EASY TO CHEW foods and THIN liquids. The following strategies are recommended to maximize safety: -Sit upright during PO intake and for at least 30 minutes afterwards -Take small bites and chew well -Avoid hard, tough to chew solids, overly dry foods, and foods that crumble/break into small pieces (i.e. nuts, popcorn, dry rice, etc) -Moisten food with sauces/gravies -Dry swallow after each bite/sip -Alternate solids/liquids -Liquids via teaspoon or cup sips -Avoid the use of straws -Take one sip at a time, avoid taking sequential sips Therapy Recommendations: Therapy will be continued. Recommend 1-2 follow-up visits with a speech pathologist for further education RE: recommended diet and strategies. The following compensatory strategies and/or therapeutic exercises will be part of the upcoming therapy/management plan: Bolus Volume Change Rate of Ingestion Change Additional Swallow(s) per Bolus Clinical Quality Manager Goals: ? The patient and/or family will participate in further education for swallowing goals. Short Term Goals: ? Diet - The patient will tolerate a Soft and Easy to Chew diet with thin liquids without signs or symptoms of penetration/aspiration 100% of the time. ? Guidelines - The patient will comply with/recall the following guidelines/strategies 100% of the time with no cuing: Bolus Volume Change, Rate of Ingestion Change, Additional Swallow(s) per Bolus, Throat Clear. ? Education - The patient will verbalize/demonstrate understanding of the results of this evaluation, the above recommendations, and the swallowing guidelines. Clinician - Supplemental, Miscellaneous Communication: It is important to note MBSS objective studies are snapshots in time and Patient function might vary with factors such as time of day or concomitant medical conditions. For this reason, the final treatment plan for this patient should rest with their medical care team. Additional recommendations should be considered with the totality of the Patient in mind. Thank for the opportunity to participate in the care of this patient. If you have any questions about the content of this report, please contact the [facility] at [facility]. Education: Education regarding findings from today's study and plans for therapy were provided to Patient only through Verbal Instruction. Understanding was expressed by the Patient only. Property Custodian Clinician/Clinical Fellow: No Supervisory Statement: N/A Speech Language Pathologist: Tiffany Mathis M.A., CCC-STEAM ROLLER OPERATOR
== END 2024-03-25 14:21 | disposition home or self-care (01) ==
LOC: HO.XRAY 14:20
PROVIDERS: Visit Provider Physician Assistant Medical
DX: G20.A1 Parkinson's disease without dyskinesia, without mention of fluctuations (principal); T18.128A Food in esophagus causing other injury, initial encounter; W44.F3XA Food entering into or through a natural orifice, initial encounter; Y93.9 Activity, unspecified; Y92.9 Unspecified place or not applicable; Y99.9 Unspecified external cause status
CPT/HCPCS: 74230; 92611

== ENCOUNTER → 2024-03-25 14:30 | Outpatient (BNV) | payer MEDICARE, OTHER, SELFPAY | PROVIDERS: Visit Provider Physician Assistant Surgical | DX: R13.10 Dysphagia, unspecified (principal) | CPT/HCPCS: 74230 ==

== ENCOUNTER 2024-04-20 16:12 | Outpatient (RCR) | payer OTHER, SELFPAY ==
--- NOTE | 2024-04-24 16:21 | MHC.SL.SOA ---
Referring Provider: Agatha PIÑA Reason for Referral: Dysphagia Date of Plan of Treatment:03/25/24 Onset of Symptoms/Illness:01/24/24 Date Treatment Started:03/25/24 Medical Diagnosis:G20.A1 Parkinson's disease without dyskinesia, without mention of fluctuations T18.128A Food in esophagus causing other injury, initial encounter W44.F3XA Food entering into or through a natural orifice, initial encounter Primary Speech Language Diagnosis:R13.12 Oropharyngeal Phase Dysphagia Reason for Visit:04210 Dysphagia Treatment Subjective:Patient arrived on time for his appointment, accompanied by a family member. Objective: GOAL ADDRESSED AND MET: The patient and/or family will participate in further education for swallowing goals. Assessment:03/25/24 MBSS revealed mild oropharyngeal dysphagia. Patient presented with prolonged and disorganized mastication pattern, secondary to edentulous status. Also noted on exam, partial epiglottic inversion and partial laryngeal vestibular closure, with trace penetration above the vocal folds on sequential sips thin and nectar thick liquid. No penetration observed when patient took individual sips. No evidence of aspiration during the exam. Patient had mild to moderate residue mostly cleared with dry swallows. Patient was subsequently recommended a soft, easy to chew diet and thin liquids with strategies to promote oral and pharyngeal clearance. Results from this exam were discussed at length with presentation of imaging and patient's questions were answered. Patient and caregiver asked about drinking from a straw, as this had been patient's preferred method previously. Recent exam showed penetration with liquids, which would put patient at risk for subsequent aspiration, thus patient is recommended to take caution and to drink liquids via teaspoon or individual cup sips instead. Patient has a hard time managing mixed consistencies as well and is recommended to eat solid and liquid components separately. For example, drinking broth and then eating noodles/soft vegetables. Patient was provided with a copy of his MBSS report. Educational handouts were also provided RE: easy to chew diet (IDDSI level 7) and aspiration precautions. Notes: Education provided RE: recommended diet and strategies. Patient denies having any further questions or concerns at this time. Further ST intervention is no longer warranted. Please re-refer if we can be of further assistance in patient's care. Patient has hx esophageal obstruction/food impaction, for which he was recently hospitalized. He is recommended G.I. consult, as he also complains of globus sensation. Given patient?s lack of dentition and history of food impaction/esophageal obstruction, recommend SOFT and EASY TO CHEW foods and THIN liquids. The following strategies are recommended to maximize safety: -Sit upright during PO intake and for at least 30 minutes afterwards -Take small bites and chew well -Avoid hard, tough to chew solids, overly dry foods, and foods that crumble/break into small pieces (i.e. nuts, popcorn, dry rice, etc) -Moisten food with sauces/gravies -Dry swallow after each bite/sip -Alternate solids/liquids -Liquids via teaspoon or cup sips -Avoid the use of straws -Take one sip at a time, avoid taking sequential sips Recommend patient continue monitoring his dysphagia. If there are any changes or worsening of symptoms, contact PCP, at which point a repeat assessment may be warranted. Seen by: Graduate/Clinical Fellow: No Supervisory Statement: f_Reg Query Last Value , MHC.AU.SIGNATUR Speech Language Pathologist: Tiffany Mathis M.A., CCC-HEAD OF HUMAN RESOURCES
== END 2024-09-21 12:48 | disposition home or self-care (01) ==
LOC: HO.SH 16:12
PROVIDERS: Visit Provider Physician Assistant Medical
DX: G20.A1 Parkinson's disease without dyskinesia, without mention of fluctuations (principal); T18.128D Food in esophagus causing other injury, subsequent encounter; W44.F3XD Food entering into or through a natural orifice, subsequent encounter
CPT/HCPCS: 92526

== ENCOUNTER → 2024-06-11 11:45 | Outpatient (BNVA) | payer OTHER, MEDICARE, SELFPAY | PROVIDERS: PCP Physician Assistant Medical; Visit Provider Physician Assistant Medical | DX: G20.A1 Parkinson's disease without dyskinesia, without mention of fluctuations (principal); E11.9 Type 2 diabetes mellitus without complications; I10 Essential (primary) hypertension; F31.9 Bipolar disorder, unspecified; E78.00 Pure hypercholesterolemia, unspecified; G40.909 Epilepsy, unspecified, not intractable, without status epilepticus; L40.9 Psoriasis, unspecified; Z79.84 Long term (current) use of oral hypoglycemic drugs; Z79.899 Other long term (current) drug therapy | CPT/HCPCS: 83036; 96127 ==

== ENCOUNTER 2024-06-11 12:50 | Outpatient (REF) | payer OTHER, MEDICARE, SELFPAY ==
[2024-06-11 14:57] LABS: Anion Gap 10 (12-20); Blood Urea Nitrogen 18 mg/dL (9-16); Calcium 8.7 mg/dL (8.4-10.2); Carbon Dioxide 27 mmol/L (22-29); Chloride 106 mmol/L (96-108); Estimated Glomerular Filt Rate 53; Glucose Random 250 mg/dL (60-115); Potassium 4.3 mmol/L (3.3-5.1); Sodium 139 mmol/L (135-145)
== END 2024-06-11 12:51 | disposition home or self-care (01) ==
LOC: HO.WFDLDS 12:50
PROVIDERS: Visit Provider Physician Assistant Medical
DX: E11.29 Type 2 diabetes mellitus with other diabetic kidney complication (principal); R80.9 Proteinuria, unspecified
CPT/HCPCS: 36415; 80048

== ENCOUNTER 2024-06-24 12:13 | Outpatient (AMB) | payer OTHER, MEDICARE, SELFPAY ==
--- NOTE | 2024-06-24 16:09 | MHC.OFFVISPS ---
Intake Intake Visit Reasons: depression Allergies Inhaled Anesthetics (Halogen Based) Allergy (Intermediate, Verified 06/11/24 11:48) rash HPI- Psychiatric Chief Complaint: depression HPI Narrative: Patient seen in Telehealth appointment. Had discussed previously having medication prescribed by his PCP apparently this did not go through. Patient can spend impulsively on credit cards reportedly not manic asleep okay. Has somewhat a strange relationship with his daughter his Parkinson's relatively stable has difficulty with ambulation. He remains living at home Past Psychiatric History: hx of bipolar disorder Mental Status Exam Mental Status Exam Narrative: Speech was somewhat improved easier to understand Patient Appearance: Appropriate Level of Consciousness: Awake Patient Behavior: Appropriate Mood Description: Calm and Apprehensive Affect Description: Constricted Judgement and Insight: Patient denies gross manic symptoms was able to discuss his impulsive spending Telehealth Telehealth Telehealth Platform: Acquaintable Location of provider rendering services: practice address Location of patient: address on file Patient Identification confirmed using: Name, : Yes Telehealth method: video Patient verbally consented to treatment: Yes Minutes spent on Phone/Video with Pt.: 14 Assessment and Plan Assessment & Plan (1) Bipolar 1 disorder: Status: Acute Code(s): F31.9 - Bipolar disorder, unspecified (2) Parkinson disease: Status: Acute Qualifiers: Dyskinesia presence: unspecified whether dyskinesia Fluctuating manifestations: unspecified whether manifestations fluctuate Qualified Code(s): G20.A1 - Parkinson's disease without dyskinesia, without mention of fluctuations Code(s): G20 - Parkinson's disease (3) S/P deep brain stimulator placement: Status: Acute Code(s): Z96.89 - Presence of other specified functional implants Plan Consider increase in Lamictal 200 b.i.d. if patient is having breakthrough. Need further collaborative information. Patient reportedly is also being set up in the community a therapist that might help progressive disability issues and family interpersonal issues. Will try and meet with patient and his to get a better sense of current situation Counseling and coordination of Care Medication management counseling: Effectiveness, Side effects and Dosing range Diagnosis and Prognosis Counseling: Impact of diagnosis on life functions and Adequacy of current interventions Details: I spent [25] minutes reviewing the record, seeing the patient and documenting in the medical record. Counseling provided to the patient/caregiver as outlined below. Addressed patient/caregiver concerns regarding current medication regime including effective adherence. Addressed patient/caregiver concerns regarding diagnosis and prognosis including accuracy of diagnosis, prognosis over time, impact of diagnosis. Addressed patient/caregiver concerns regarding impact of recent stressors. [facility] Medical History (Updated 03/06/24 @ 08:37 by AYANA Campbell) Diabetes mellitus with microalbuminuria CKD stage 3a, GFR 45-59 ml/min Seizure disorder STACI (obstructive sleep apnea) Elevated creatine kinase BMI 37.0-37.9, adult BMI 33.0-33.9,adult Pure hypercholesterolemia Essential hypertension Bipolar 1 disorder Constipation Psoriasis Depression Asthma Sleep apnea Type 2 diabetes mellitus Parkinson disease Surgical History S/P deep brain stimulator placement Family History Mother Diabetes Gastro-esophageal reflux Heart problem High blood pressure Father Prostate cancer Blood clot in vein Son Autism Food allergy Daughter Generalized anxiety disorder Eosinophilic esophagitis Other Mental health disorder Social History Housing: House Patient Tobacco Use Status: Never used Tobacco e-Cigarette/Vaping Use: Never Used Second Hand Smoke Exposure: No service: No Current occupational status: retired Current occupational exposures/hazards: No Cognitive needs: No Hearing needs: No Vision needs: No Coding Level of Care Code Tele Est Pt Level 3 (02251) Diagnoses Bipolar 1 disorder F31.9 Parkinson's disease, unspecified whether dyskinesia present, unspecified whether manifestations fluctuate G20.A1 Dyskinesia presence: unspecified whether dyskinesia Fluctuating manifestations: unspecified whether manifestations fluctuate S/P deep brain stimulator placement Z96.89
== END 2024-06-24 12:14 | disposition home or self-care (01) ==
LOC: HO.HOP 12:13
PROVIDERS: PCP Physician Assistant Medical; Visit Provider Psychiatry & Neurology Psychiatry
DX: F31.9 Bipolar disorder, unspecified (principal); G20.A1 Parkinson's disease without dyskinesia, without mention of fluctuations; Z96.89 Presence of other specified functional implants
CPT/HCPCS: 99213

== ENCOUNTER → 2024-06-24 12:13 | Outpatient (BNVA) | payer OTHER, MEDICARE, SELFPAY | PROVIDERS: PCP Physician Assistant Medical; Visit Provider Psychiatry & Neurology Psychiatry ==

== ENCOUNTER 2024-07-20 11:41 | Outpatient (AMB) | payer MEDICARE, MEDICAID, SELFPAY ==
--- NOTE | 2024-07-20 11:44 | MHC.PC.OV ---
Vital Signs 07/20/24 11:45 Height 5 ft 7 in Weight 228 lb BMI 35.7 BP 136/80 Blood Pressure Location Lt brachial Position Sitting Pulse 102 H Pulse Source Pulse Oximeter Pulse Oximetry (%) 96 Oxygen Delivery Method Room Air Intake Visit Reasons: HTN, DM, Allergies Inhaled Anesthetics (Halogen Based) Allergy (Intermediate, Verified 07/20/24 11:49) rash Medication List - Last Reconciled 07/20/24 by AYANA Campbell albuterol sulfate 90 mcg/actuation 2 inhalations inhalation Q4H PRN atorvastatin 20 mg PO BEDTIME blood sugar diagnostic (OneTouch Verio test strips) Use as directed to check blood glucose twice daily. blood-glucose meter (NetuitiveTouch Verio Flex Meter) Use as directed to check blood glucose twice daily. carbidopa-levodopa 25-100 mg 2 tabs PO QID carbidopa-levodopa 50-200 mg ER 1 tab PO BEDTIME donepezil 10 mg PO DAILY entacapone 200 mg PO TID lamotrigine 300 mg (2 x 150 mg) PO BEDTIME lisinopril 5 mg PO DAILY 90 days melatonin 3 mg PO BEDTIME PRN metformin ER 1,500 mg (3 x 500 mg) PO DAILY mirabegron ER (Myrbetriq) 25 mg PO DAILY selegiline HCl 5 mg PO BID walker As directed Tobacco use date assessed: 07/20/24 Dental Screening Dental Screen Date: 07/20/24 Did you have a dental visit in the last 12 months?: No Did you have a dental problem in the last 6 months where you did not have access to dental care?: No Was dental information given to patient?: Patient has dentist HPI HPI Comments History of Present Illness Details This is a 59-year-old male with a past medical history of bipolar disorder, seizure disorder, Parkinson disease, mild intermittent asthma, type 2 diabetes, hypertension and hyperlipidemia presenting for a medication review. Patient is accompanied by his . Neurology-Dr. Way at [facility] [place] Seen in June 2024. He was diagnosed with Parkinsons about 28 years ago. He has a seizure disorder, but his last seizure was a few years ago. He has 2 deep brain stimulators. His blood pressure was initially elevated at his last visit. Patient is on 5 mg lisinopril, he has CKD 3 and mild microalbuminuria. Today he brought in home readings for July from his phone-see below. Denies chest pain, shortness of breath and dizziness. 128/75 132/78 113/70 128/70 108/77 122/81 128/75 STACI-seen by Dr. Jennings. A new center sleep study is going to be scheduled. Psychiatrist-previously seen by Dr. Mikey Jackson. Patient says he is on a wait list because his psychiatrist is going to retire. Asthma-nonsmoker. Denies symptoms. Type 2 diabetes-his metformin was increased to 1500 mg daily at his last visit because his hemoglobin A1c was 7.7%. Taking atorvastatin 20 mg for hyperlipidemia. Due for labs. His says they can not use the CGM. They did not get the test strips for the glucometer that I sent to the pharmacy, but they do have the meter and lancets. Denies side effects since increasing the dose of metformin. No further food impaction issues. Underwent barium swallow study and saw speech pathology for recommendations which he found helpful. ROS: Constitutional: No unexplained weight loss, fever, chills Eyes: No vision changes, blurry vision, double vision Respiratory: No shortness of breath, cough or sputum production. Cardiovascular: No chest pain Gastrointestinal: No anorexia, nausea, vomiting or diarrhea. No abdominal pain Neurologic: No headache, dizziness, syncope Physical exam: Constitutional: Alert, in no distress. Neck: Supple, Full range of motion. No lymphadenopathy. Respiratory: Clear to auscultation. Cardiovascular: S1 S2 regular. No murmurs. Neurologic: Ambulates with walker. Dysarthria. Resting hand tremor. Extremities: Warm and well perfused. No clubbing, cyanosis or edema. Psychiatric: Normal mood and affect [facility] Medical History Diabetes mellitus with microalbuminuria CKD stage 3a, GFR 45-59 ml/min Seizure disorder STACI (obstructive sleep apnea) Elevated creatine kinase BMI 37.0-37.9, adult BMI 33.0-33.9,adult Pure hypercholesterolemia Essential hypertension Bipolar 1 disorder Constipation Psoriasis Depression Asthma Sleep apnea Type 2 diabetes mellitus Parkinson disease Surgical History S/P deep brain stimulator placement Family History Mother Diabetes Gastro-esophageal reflux Heart problem High blood pressure Father Prostate cancer Blood clot in vein Son Autism Food allergy Daughter Generalized anxiety disorder Eosinophilic esophagitis Other Mental health disorder Social History Housing: House Patient Tobacco Use Status: Never used Tobacco e-Cigarette/Vaping Use: Never Used Second Hand Smoke Exposure: No service: No Current occupational status: retired Current occupational exposures/hazards: No Cognitive needs: No Hearing needs: No Vision needs: No Questionnaire PHQ-9 Over the last 2 weeks, how often have you been bothered by any of the following problems? 1. Little interest or pleasure in doing things: not at all 2. Feeling down, depressed, or hopeless: more than half the days 3. Trouble falling or staying asleep, or sleeping too much: more than half the days 4. Feeling tired or having little energy: not at all 5. Poor appetite or overeating: not at all 6. Feeling bad about yourself - or that you are a failure or have let yourself or your family down: more than half the days 7. Trouble concentrating on things, such as reading the newspaper or watching television: not at all 8. Moving or speaking so slowly that other people could have noticed. Or the opposite - being so fidgety or restless that you have been moving around a lot more than usual: not at all 9. Thoughts that you would be better off or of hurting yourself in some way: not at all Total score: 6 Source: Developed by Drs. Bowen Zaragoza, Hattie Og, Adonis Stephens and colleagues, with an educational elisha from [employer]. Thrive Questionnaire Date Thrive assessed: 06/04/24 I am a: Patient What is your living situation today?: I have a steady place to live Within the past 12 months, did the food you bought not last and you didn't have the money to get more?: Never true Within the past 12 months, did you worry whether your food would run out before you got money to buy more?: Never true Do you have trouble paying for medicines?: No Do you have trouble getting transportation to medical appointments?: No Do you have trouble paying your heating and electricity bill?: No Do you have trouble taking care of your child, family member or friend?: No Do you have trouble with day-to-day activities such as bathing, preparing meals, shopping, managing finances, etc.?: No Are you currently unemployed and looking for a job?: No Are you interested in more education?: No Please select the resources that you would like help with: None Currently or been in a relationship where the following occur: No concerns reported THRIVE Score: 0 AUDIT C Alcohol Use Questionnaire (AUDIT-C) 1. How often do you have a drink containing alcohol?: Never 3. How often do you have six or more drinks on one occasion?: Never Total Score: 0 DYLAN-7 AMB Questionnaire DYLAN-7 Date DYLAN - 7 assessed: 06/11/24 Feeling nervous, anxious, or on edge: 0 = Not at all Not being able to stop or control worryin = Not at all Worrying too much about different things: 0 = Not at all Trouble relaxin = Not at all Being so restless that it is hard to sit still: 0 = Not at all Becoming easily annoyed or irritable: 0 = Not at all Feeling afraid as if something awful might happen: 0 = Not at all Total DYLAN-7 score (0-4 normal; 5-9 mild; 10-14 moderate; 15-21 severe): 0 Source: Developed by Drs. Bowen Zaragoza, Hattie Og, Adonis Stephens and colleagues, with an educational elisha from [employer]. Physical exam (Primary Care) Vital Signs: Last Vital Signs Pulse 102 H 07/20/24 11:45 BP 136/80 07/20/24 11:45 Pulse Ox 96 07/20/24 11:45 Oxygen Delivery Method Room Air 07/20/24 11:45 BMI result Body Mass Index 35.7 Tobacco/Smoking Status: Tobacco use Status Tobacco use date assessed 07/20/24 07/20/24 11:53 Patient Tobacco Use Status Never used Tobacco 07/20/24 11:53 e-Cigarette/Vaping Use Never Used 07/20/24 11:53 PHQ-9: PHQ-9 Score PHQ-9: Total score 6 07/20/24 11:53 Thrive Assessment: Date of Thrive Assessment Date Thrive assessed 06/04/24 07/20/24 11:53 Currently or been in a relationship where the following occur: No concerns reported Coding Level of Care Code Est Pt Level 4 (36773) Complex EM visit Add On G2211 Diagnoses Parkinson's disease, unspecified whether dyskinesia present, unspecified whether manifestations fluctuate G20.A1 Dyskinesia presence: unspecified whether dyskinesia Fluctuating manifestations: unspecified whether manifestations fluctuate Type 2 diabetes mellitus without complication, without long-term current use of insulin E11.9 Diabetes mellitus remote control mirror installer insulin use: without remote control mirror installer use Diabetes mellitus complication status: without complication Essential hypertension I10 Bipolar 1 disorder F31.9 Pure hypercholesterolemia E78.00 Seizure disorder G40.909 Assessment & Plan Assessment & Plan (1) Parkinson disease: Code(s): G20 - Parkinson's disease Category: Medical Qualifiers: Dyskinesia presence: unspecified whether dyskinesia Fluctuating manifestations: unspecified whether manifestations fluctuate Qualified Code(s): G20.A1 - Parkinson's disease without dyskinesia, without mention of fluctuations Plan: Continue management per Neurology. (2) Type 2 diabetes mellitus: Code(s): E11.9 - Type 2 diabetes mellitus without complications Category: Medical Qualifiers: Diabetes mellitus group home insulin use: without remote control mirror installer use Diabetes mellitus complication status: without complication Qualified Code(s): E11.9 - Type 2 diabetes mellitus without complications Plan: Continue metformin extended release 1500 mg daily. Recommended low carb, low sugar diet. 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 Sent diabetic testing supplies. They will send me the readings in a few weeks. Declines CGM. (3) Essential hypertension: Code(s): I10 - Essential (primary) hypertension Category: Medical Plan: Continue lisinopril and avoidance of caffeine and follow a low-sodium diet. Systolic blood pressure is suboptimal, but home readings are normal. (4) Bipolar 1 disorder: Code(s): F31.9 - Bipolar disorder, unspecified Category: Medical Plan: Continue current medications. He has been referred to Psychiatry since his doctor is retiring. (5) Pure hypercholesterolemia: Code(s): E78.00 - Pure hypercholesterolemia, unspecified Category: Medical Plan: Continue atorvastatin. Recommended Mediterranean diet. Recheck lipid profile. (6) Seizure disorder: Code(s): G40.909 - Epilepsy, unspecified, not intractable, without status epilepticus Category: Medical Plan: Continue treatment regimen per Neurology. Plan Follow up in 3 months. Medications: New blood sugar diagnostic (OneTouch Verio test strips) Use as directed to check blood glucose twice daily. 100 ea 5RF E11.9 - Type 2 diabetes mellitus without complications Discontinued lancets (OneTouch Delica Plus Lancet) Discontinued Reason: Doctor's Order Use as directed to check blood glucose twice daily. 100 ea 5RF blood-glucose meter,continuous (FreeStyle Panda 3 [place]) Discontinued Reason: Doctor's Order Use daily to monitor blood glucose levels continuously. 1 ea 0RF blood sugar diagnostic (OneTouch Ultra Test strips) Discontinued Reason: Doctor's Order use as directed to check blood glucose once daily 100 ea 5RF E11.9 lancets (OneTouch Delica Plus Lancet) Discontinued Reason: Doctor's Order Use as directed to check blood glucose twice daily. 100 ea 5RF blood-glucose sensor (FreeStyle Panda 3 Plus Sensor device) Discontinued Reason: Doctor's Order Apply 1 new sensor every 14-15 days as directed to monitor blood glucose continuously. 2 ea 11RF
[2024-07-20 11:45] VITALS: BP 136/80; PULSE 102; O2SAT 96; BMI 35.7
== END 2024-07-20 12:31 | disposition home or self-care (01) ==
PROVIDERS: PCP Physician Assistant Medical; Visit Provider Physician Assistant Medical
DX: G20.A1 Parkinson's disease without dyskinesia, without mention of fluctuations (principal); E11.9 Type 2 diabetes mellitus without complications; F31.9 Bipolar disorder, unspecified; G40.909 Epilepsy, unspecified, not intractable, without status epilepticus; I10 Essential (primary) hypertension; E78.00 Pure hypercholesterolemia, unspecified

== ENCOUNTER → 2024-07-20 11:41 | Outpatient (BNVA) | payer MEDICARE, SELFPAY | PROVIDERS: PCP Physician Assistant Medical; Visit Provider Physician Assistant Medical | DX: G20.A1 Parkinson's disease without dyskinesia, without mention of fluctuations (principal); E11.9 Type 2 diabetes mellitus without complications; I10 Essential (primary) hypertension; F31.9 Bipolar disorder, unspecified; E78.00 Pure hypercholesterolemia, unspecified; G40.909 Epilepsy, unspecified, not intractable, without status epilepticus; Z79.84 Long term (current) use of oral hypoglycemic drugs; Z79.899 Other long term (current) drug therapy | CPT/HCPCS: 96127; 99212 ==

== ENCOUNTER 2024-08-26 13:41 | Outpatient (AMB) | payer MEDICARE, MEDICAID, SELFPAY ==
--- NOTE | 2024-08-26 11:09 | MHC.OFFVISPS ---
Intake Intake Visit Reasons: depression Allergies Inhaled Anesthetics (Halogen Based) Allergy (Intermediate, Verified 07/20/24 11:49) rash HPI- Psychiatric Chief Complaint: depression HPI Narrative: Patient seen Telehealth appointment. Patient has some difficulty with speech secondary to his Parkinson's. He has had able to communicate by video. Patient does stay he tends to by too many things online impulsively denies gross euphoria grandiosity difficulty sleeping. He states he has had this problem for a long time does not tend to cycle. Have asked to meet with the patient and his together so I can get a clear history. Patient has a history of bipolar disorder and history of early-onset Parkinson's with brain stimulation. He is able to do some ambulation with a walker continues to be able to maintain nutrition Past Psychiatric History: hx of bipolar disorder Mental Status Exam Mental Status Exam Narrative: Speech dysarthric Patient Appearance: Disheveled and Appropriate Level of Consciousness: Awake Patient Behavior: Appropriate Mood Description: Calm and Apprehensive Affect Description: Constricted Speech Pattern: Slurred Thought Process: Linear and Slowed Thinking Judgement: Fair Judgement and Insight: Patient denies gross manic symptoms was able to discuss his impulsive spending but unclear if able to Telehealth Telehealth Telehealth Platform: [employer] Location of provider rendering services: practice address Location of patient: address on file Patient Identification confirmed using: Name, : Yes Telehealth method: video Patient verbally consented to treatment: Yes Minutes spent on Phone/Video with Pt.: 10 Assessment and Plan Assessment & Plan (1) Bipolar 1 disorder: Status: Acute Code(s): F31.9 - Bipolar disorder, unspecified (2) CKD stage 3a, GFR 45-59 ml/min: Status: Acute Code(s): N18.31 - Chronic kidney disease, stage 3a (3) Parkinson disease: Status: Acute Qualifiers: Dyskinesia presence: unspecified whether dyskinesia Fluctuating manifestations: unspecified whether manifestations fluctuate Qualified Code(s): G20.A1 - Parkinson's disease without dyskinesia, without mention of fluctuations Code(s): G20 - Parkinson's disease (4) S/P deep brain stimulator placement: Status: Acute Code(s): Z96.89 - Presence of other specified functional implants Plan Increase Lamictal 200 b.i.d. unclear if patient is having bipolar cycling and impulsivity were more chronic impulsivity not consistent necessarily with bipolar he describes no other manic type symptoms have ask patient and staff to try and coordinate meeting with patient and his did try to clarify diagnostic issues Medications: Changed From lamotrigine 300 mg (2 x 150 mg) PO BEDTIME 180 tabs 1RF To lamotrigine 200 mg PO BID 60 tabs 2RF Counseling and coordination of Care Details-Self Mgmt counseling: Discussed strategies for managing buying Medication management counseling: Effectiveness and Side effects Diagnosis and Prognosis Counseling: Adequacy of current interventions Details: I spent [20] minutes reviewing the record, seeing the patient and documenting in the medical record. Counseling provided to the patient/caregiver as outlined below. Addressed patient/caregiver concerns regarding current medication regime including effective adherence. Addressed patient/caregiver concerns regarding diagnosis and prognosis including accuracy of diagnosis, prognosis over time, impact of diagnosis. Addressed patient/caregiver concerns regarding impact of recent stressors. 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 CKD stage 3a, GFR 45-59 ml/min Seizure disorder STACI (obstructive sleep apnea) Elevated creatine kinase BMI 37.0-37.9, adult BMI 33.0-33.9,adult Pure hypercholesterolemia Essential hypertension Bipolar 1 disorder Constipation Psoriasis Depression Asthma Sleep apnea Type 2 diabetes mellitus Parkinson disease Surgical History S/P deep brain stimulator placement Family History Mother Diabetes Gastro-esophageal reflux Heart problem High blood pressure Father Prostate cancer Blood clot in vein Son Autism Food allergy Daughter Generalized anxiety disorder Eosinophilic esophagitis Other Mental health disorder Social History Housing: House Patient Tobacco Use Status: Never used Tobacco e-Cigarette/Vaping Use: Never Used Second Hand Smoke Exposure: No service: No Current occupational status: retired Current occupational exposures/hazards: No Cognitive needs: No Hearing needs: No Vision needs: No Coding Level of Care Code Tele Est Pt Level 3 (62943) Diagnoses Bipolar 1 disorder F31.9 CKD stage 3a, GFR 45-59 ml/min N18.31 Parkinson's disease, unspecified whether dyskinesia present, unspecified whether manifestations fluctuate G20.A1 Dyskinesia presence: unspecified whether dyskinesia Fluctuating manifestations: unspecified whether manifestations fluctuate S/P deep brain stimulator placement Z96.89
== END 2024-08-26 13:42 | disposition home or self-care (01) ==
LOC: HO.HOP 13:41
PROVIDERS: PCP Physician Assistant Medical; Visit Provider Psychiatry & Neurology Psychiatry
DX: F31.9 Bipolar disorder, unspecified (principal); N18.31 Chronic kidney disease, stage 3a; G20.A1 Parkinson's disease without dyskinesia, without mention of fluctuations; Z96.89 Presence of other specified functional implants
CPT/HCPCS: 99213

== ENCOUNTER → 2024-08-26 13:41 | Outpatient (BNVA) | payer MEDICARE, MEDICAID, SELFPAY | PROVIDERS: PCP Physician Assistant Medical; Visit Provider Psychiatry & Neurology Psychiatry | DX: Z13.89 Encounter for screening for other disorder (principal) ==

== ENCOUNTER → 2024-10-07 22:00 | Outpatient (REF) | payer MEDICARE, MEDICAID, SELFPAY | LOC: HO.SL 22:00 | PROVIDERS: PCP Physician Assistant Medical; Visit Provider Psychiatry & Neurology Neurology | DX: G47.52 REM sleep behavior disorder (principal) | CPT/HCPCS: 95810 ==

== ENCOUNTER → 2024-10-07 23:07 | Outpatient (BNV) | payer MEDICARE, MEDICAID, SELFPAY | PROVIDERS: PCP Physician Assistant Medical; Visit Provider Psychiatry & Neurology Neurology | DX: G47.33 Obstructive sleep apnea (adult) (pediatric) (principal) | CPT/HCPCS: 95810 ==

== ENCOUNTER 2024-10-08 07:45 | Outpatient (REF) | payer MEDICARE, MEDICAID, SELFPAY ==
--- OUTSIDE RECORDS SUMMARY | 2024-10-08 07:47 | XMS_ITS | Continuity of Care Document ---
Author Organization [facility] Address [address] [place] [address] Problems Unknown Problems Results Test Value / Unit Interpretation Reference Ran ge Lab Report Tyrell Sands.pd f Allergies, adverse reactions, alerts No known allergies and adverse reactions Medications No administered medications reported Vital Signs No vital signs reported Social History No smoking Hx information available
[2024-10-08 12:18] LABS: Estimated Average Glucose 157 mg/dL; Hemoglobin A1c % 7.1 % (<6.0)
[2024-10-08 12:48] LABS: Alanine Aminotransferase < 6 U/L (0-40); Aspartate Amino Transferase 23 U/L (5-37); Cholesterol 182 mg/dL (<200); HDL Cholesterol 41 mg/dL (>40); LDL Cholesterol Calculated 124 mg/dL (<100); Triglycerides 88 mg/dL (<150)
== END 2024-10-08 07:46 | disposition home or self-care (01) ==
LOC: HO.WFDLDS 07:45
PROVIDERS: Visit Provider Physician Assistant Medical
DX: E78.5 Hyperlipidemia, unspecified (principal); E78.00 Pure hypercholesterolemia, unspecified; E11.9 Type 2 diabetes mellitus without complications
CPT/HCPCS: 36415; 80061; 83036; 84450; 84460

== ENCOUNTER 2024-10-12 10:18 | Outpatient (AMB) | payer MEDICARE, MEDICAID, SELFPAY ==
--- NOTE | 2024-10-12 10:21 | A.OFFPC_ITS ---
Vital Signs 10/12/24 10:27 Height 5 ft 7 in Weight 218 lb 2 oz BMI 34.2 BP 128/68 Blood Pressure Location Rt brachial Position Sitting Pulse 101 H Pulse Source Pulse Oximeter Temp 98.2 F Temp Source Temporal Artery Scan Pulse Oximetry (%) 96 Oxygen Delivery Method Room Air Intake Visit Reasons: est/toe issue Intake Note: Tyrell presents in the office today for an issue with his left great toe. Nail is turning black. Not painful. Started a couple of months ago as a small spot and has grown. Allergies Inhaled Anesthetics (Halogen Based) Allergy (Intermediate, Verified 10/12/24 10:24) rash Medication List - Last Reconciled 10/13/24 by AYANA Campbell albuterol sulfate 90 mcg/actuation 2 inhalations inhalation Q4H PRN atorvastatin 40 mg PO BEDTIME blood sugar diagnostic ([employer] test strips) Use as directed to check blood glucose once daily. blood-glucose meter ([employer] Ver[employer] Flex Meter) Use as directed to check blood glucose twice daily. carbidopa-levodopa 25-100 mg 2 tabs PO QID carbidopa-levodopa 50-200 mg ER 1 tab PO BEDTIME diaper,brief,adult,disposable As directed donepezil 10 mg PO DAILY entacapone 200 mg PO TID lamotrigine 200 mg PO BID lisinopril 5 mg PO DAILY 90 days melatonin 3 mg PO BEDTIME PRN metformin ER 1,500 mg (3 x 500 mg) PO DAILY selegiline HCl 5 mg PO BID walker As directed Tobacco use date assessed: 10/12/24 Dental Screening Dental Screen Date: 10/12/24 Did you have a dental visit in the last 12 months?: No Did you have a dental problem in the last 6 months where you did not have access to dental care?: No Was dental information given to patient?: No HPI HPI Comments History of Present Illness Details This is a 59-year-old male with a past medical history of bipolar disorder, seizure disorder, Parkinson disease, mild intermittent asthma, type 2 diabetes, hypertension and hyperlipidemia presenting for a toenail problem. About 4 weeks ago they noticed a discolored area on his left big toenail. There is no pain. He does not recall a specific injury, but he does trip due to parkinsons. Denies numbness or tingling with it. Denies swelling, fevers and chills. [place]. [place] [facility] [place] He was diagnosed with Parkinsons about 28 years ago. He has a seizure disorder, but his last seizure was a few years ago. He has 2 deep brain stimulators. Patient has urinary incontinence. They need a prescription for size large adult disposable briefs. Hypertension-compliant with medications. He has CKD stage 3 and mild microalbuminuria. His blood pressure is 128/68 today. Hyperlipidemia-taking atorvastatin 20 mg daily. LDL above goal. STACI-seen by Dr. Jennings. Psychiatrist-followed by Dr. Mikey Jackson. Asthma-nonsmoker. Denies symptoms. Type 2 diabetes-his metformin was increased to 1500 mg daily at his last visit , and his hemoglobin A1c decreased from 7.7% 7.1%. Taking atorvastatin 20 mg for hyperlipidemia. No further food impaction issues. Underwent barium swallow study and saw speech pathology for recommendations which he found helpful. His on the phone today wanted to know about getting a MOLST form. ROS: Constitutional: No unexplained weight loss, fever, chills Eyes: No vision changes, blurry vision, double vision Respiratory: No shortness of breath, cough or sputum production. Cardiovascular: No chest pain Gastrointestinal: No anorexia, nausea, vomiting or diarrhea. No abdominal pain Neurologic: No headache, dizziness, syncope Physical exam: Constitutional: Alert, in no distress. Neck: Supple, Full range of motion. No lymphadenopathy. Respiratory: Clear to auscultation. Cardiovascular: S1 S2 regular. No murmurs. Neurologic: Ambulates with walker. Dysarthria. Resting hand tremor. Toenail: Large area of discoloration noted on the left toenail which is blackish/bluish/purplish. It does not extend to the toenail bed or to the distal edge of the nail. There is no swelling, discharge, erythema or tenderness. Extremities: DP pulses intact. Sensation intact bilaterally. Warm and well perfused. 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 CKD stage 3a, GFR 45-59 ml/min Seizure disorder STACI (obstructive sleep apnea) Elevated creatine kinase BMI 37.0-37.9, adult BMI 33.0-33.9,adult Pure hypercholesterolemia Essential hypertension Bipolar 1 disorder Constipation Psoriasis Depression Asthma Sleep apnea Type 2 diabetes mellitus Parkinson disease Surgical History S/P deep brain stimulator placement Family History Mother Diabetes Gastro-esophageal reflux Heart problem High blood pressure Father Prostate cancer Blood clot in vein Son Autism Food allergy Daughter Generalized anxiety disorder Eosinophilic esophagitis Other Mental health disorder Social History (Updated 10/12/24 @ 10:27 by Fanny Wallace MA) Housing: House Alcohol intake: never Patient Tobacco Use Status: Never used Tobacco e-Cigarette/Vaping Use: Never Used Second Hand Smoke Exposure: No service: No Current occupational status: retired Current occupational exposures/hazards: No Cognitive needs: No Hearing needs: No Vision needs: No Questionnaire Thrive Questionnaire Date Thrive assessed: 06/04/24 I am a: Patient What is your living situation today?: I have a steady place to live Within the past 12 months, did the food you bought not last and you didn't have the money to get more?: Never true Within the past 12 months, did you worry whether your food would run out before you got money to buy more?: Never true Do you have trouble paying for medicines?: No Do you have trouble getting transportation to medical appointments?: No Do you have trouble paying your heating and electricity bill?: No Do you have trouble taking care of your child, family member or friend?: No Do you have trouble with day-to-day activities such as bathing, preparing meals, shopping, managing finances, etc.?: No Are you currently unemployed and looking for a job?: No Are you interested in more education?: No Please select the resources that you would like help with: None Currently or been in a relationship where the following occur: No concerns reported THRIVE Score: 0 DYLAN-7 AMB Questionnaire DYLAN-7 Date DYLAN - 7 assessed: 06/11/24 Source: Developed by Drs. Bowen Zaragoza, Hattie Og, Adonis Stephens and colleagues, with an educational elisha from [employer]. Physical exam (Primary Care) Vital Signs: Last Vital Signs Temp 98.2 F 10/12/24 10:27 Pulse 101 H 10/12/24 10:27 BP 128/68 10/12/24 10:27 Pulse Ox 96 10/12/24 10:27 Oxygen Delivery Method Room Air 10/12/24 10:27 BMI result Body Mass Index 34.2 Tobacco/Smoking Status: Tobacco use Status Tobacco use date assessed 10/12/24 10/12/24 10:32 Patient Tobacco Use Status Never used Tobacco 10/12/24 10:27 e-Cigarette/Vaping Use Never Used 10/12/24 10:27 Thrive Assessment: Date of Thrive Assessment Date Thrive assessed 06/04/24 10/12/24 10:22 Currently or been in a relationship where the following occur: No concerns reported Results Reviewed Results Reviewed: Laboratory Tests 03/05/24 06/11/24 10/08/24 12:40 12:51 07:35 Creatinine 1.37 Estimated GFR 53 Hemoglobin A1c % 7.1 H AST ALT Triglycerides Cholesterol LDL Cholesterol, Calc HDL Cholesterol Urine Creatinine 379.52 Urine Microalbumin 115.0 Microalb/Creat Ratio 30.3 H 10/08/24 07:47 Creatinine Estimated GFR Hemoglobin A1c % AST 23 ALT < 6 Triglycerides 88 Cholesterol 182 LDL Cholesterol, Calc 124 H HDL Cholesterol 41 Urine Creatinine Urine Microalbumin Microalb/Creat Ratio Coding Level of Care Code Est Pt Level 4 (46480) Complex EM visit Add On G2211 Diagnoses Parkinson's disease, unspecified whether dyskinesia present, unspecified whether manifestations fluctuate G20.A1 Dyskinesia presence: unspecified whether dyskinesia Fluctuating manifestations: unspecified whether manifestations fluctuate Type 2 diabetes mellitus without complication, without long-term current use of insulin E11.9 Diabetes mellitus manager intermediate insulin use: without snf use Diabetes mellitus complication status: without complication Essential hypertension I10 Bipolar 1 disorder F31.9 Pure hypercholesterolemia E78.00 Seizure disorder G40.909 Nail discoloration L60.8 Incontinence R32 Assessment & Plan Assessment & Plan (1) Parkinson disease: Code(s): G20 - Parkinson's disease Category: Medical Qualifiers: Dyskinesia presence: unspecified whether dyskinesia Fluctuating manifestations: unspecified whether manifestations fluctuate Qualified Code(s): G20.A1 - Parkinson's disease without dyskinesia, without mention of fluctuations Plan: Continue management per Neurology. (2) Type 2 diabetes mellitus: Code(s): E11.9 - Type 2 diabetes mellitus without complications Category: Medical Qualifiers: Diabetes mellitus manager intermediate insulin use: without snf use Diabetes mellitus complication status: without complication Qualified Code(s): E11.9 - Type 2 diabetes mellitus without complications Plan: Continue metformin extended release 1500 mg daily. Recommended low carb, low sugar diet. Declined referral to division human resources manager. Lifestyle modifications reviewed. (3) Essential hypertension: Code(s): I10 - Essential (primary) hypertension Category: Medical Plan: Continue lisinopril and avoidance of caffeine and follow a low-sodium diet. (4) Bipolar 1 disorder: Code(s): F31.9 - Bipolar disorder, unspecified Category: Medical Plan: Continue current medications per Psychiatry. (5) Pure hypercholesterolemia: Code(s): E78.00 - Pure hypercholesterolemia, unspecified Category: Medical Plan: Increase atorvastatin to 40 mg daily. Recommended Mediterranean diet. (6) Seizure disorder: Code(s): G40.909 - Epilepsy, unspecified, not intractable, without status epilepticus Category: Medical Plan: Continue treatment regimen per Neurology. (7) Nail discoloration: Code(s): L60.8 - Other nail disorders Category: Medical Plan: This looks like a subungual hematoma in which case no treatment would be indicated as he has no pain in the injury was at least a month ago. We discussed that melanoma could have a similar appearance and since there is no clear injury I would like him to be seen by Dermatology for evaluation. They agreed. Referral placed. (8) Incontinence: Code(s): R32 - Unspecified urinary incontinence Category: Medical Plan: Prescription for disposable adult briefs done. Plan Given MOLST form. They will review this together at home and then return in 7-8 weeks to complete it in office. Check labs in 6 weeks. Orders: Orders Alanine Aminotransferase Today E11.29 - Type 2 diabetes mellitus with other diabetic kidney complication, L60.8 - Other nail disorders, N18.31 - Chronic kidney disease, stage 3a, R32 - Unspecified urinary incontinence, R80.9 - Proteinuria, unspecified Aspartate Amino Transferase Today E11.29 - Type 2 diabetes mellitus with other diabetic kidney complication, L60.8 - Other nail disorders, N18.31 - Chronic kidney disease, stage 3a, R32 - Unspecified urinary incontinence, R80.9 - Proteinuria, unspecified Lipid Panel Today E11.29 - Type 2 diabetes mellitus with other diabetic kidney complication, E78.5 - Hyperlipidemia, unspecified, L60.8 - Other nail disorders, N18.31 - Chronic kidney disease, stage 3a, R32 - Unspecified urinary incontinence, R80.9 - Proteinuria, unspecified Creatinine Today E11.29 - Type 2 diabetes mellitus with other diabetic kidney complication, E11.9 - Type 2 diabetes mellitus without complications, L60.8 - Other nail disorders, N18.31 - Chronic kidney disease, stage 3a, R32 - Unspecified urinary incontinence, R80.9 - Proteinuria, unspecified Referrals Dermatology Referral L60.8 - Other nail disorders Medications: New atorvastatin Replaces Atorvastatin 20 mg. 40 mg PO BEDTIME 90 tabs 3RF diaper,brief,adult,disposable As directed 48 ea 11RF G20.A1 - Parkinson's disease without dyskinesia, without mention of fluctuations, R32 - Unspecified urinary incontinence Discontinued atorvastatin Discontinued Reason: Doctor's Order 20 mg PO BEDTIME 90 tabs 3RF
[2024-10-12 10:27] VITALS: BP 128/68; PULSE 101; TEMP 36.8; O2SAT 96; BMI 34.2
== END 2024-10-12 10:58 | disposition home or self-care (01) ==
LOC: HO.HMCFM 10:20
PROVIDERS: PCP Physician Assistant Medical; Visit Provider Physician Assistant Medical
DX: G20.A1 Parkinson's disease without dyskinesia, without mention of fluctuations (principal); E11.9 Type 2 diabetes mellitus without complications; F31.9 Bipolar disorder, unspecified; G40.909 Epilepsy, unspecified, not intractable, without status epilepticus; I10 Essential (primary) hypertension; E78.00 Pure hypercholesterolemia, unspecified; L60.8 Other nail disorders; R32 Unspecified urinary incontinence

== ENCOUNTER → 2024-10-12 10:18 | Outpatient (BNVA) | payer MEDICARE, MEDICAID, SELFPAY | PROVIDERS: PCP Physician Assistant Medical; Visit Provider Physician Assistant Medical | DX: G20.A1 Parkinson's disease without dyskinesia, without mention of fluctuations (principal); J45.20 Mild intermittent asthma, uncomplicated; G47.33 Obstructive sleep apnea (adult) (pediatric); I12.9 Hypertensive chronic kidney disease with stage 1 through stage 4 chronic kidney disease, or unspecified chronic kidney disease; E11.22 Type 2 diabetes mellitus with diabetic chronic kidney disease; E11.29 Type 2 diabetes mellitus with other diabetic kidney complication; N18.31 Chronic kidney disease, stage 3a; F31.9 Bipolar disorder, unspecified; E78.00 Pure hypercholesterolemia, unspecified; R80.9 Proteinuria, unspecified | CPT/HCPCS: 99212 ==

== ENCOUNTER 2024-12-03 14:44 | Outpatient (AMB) | payer MEDICARE, MEDICAID, SELFPAY ==
--- NOTE | 2024-12-03 14:46 | MHC.PC.OV ---
Vital Signs 12/03/24 14:51 Height 5 ft 7 in Weight 211 lb BMI 33.0 BP 118/72 Blood Pressure Location Rt brachial Position Sitting Pulse 69 Pulse Source Pulse Oximeter Temp 97.6 F Temp Source Temporal Artery Scan Pulse Oximetry (%) 97 Oxygen Delivery Method Room Air Intake Visit Reasons: b review, DM follow up and MOLST 30 minutes Intake Note: Tyrell presents in the office today for a follow up to diabetes and to fill out his MOLST. Allergies Inhaled Anesthetics (Halogen Based) Allergy (Intermediate, Verified 12/03/24 14:50) rash Tobacco use date assessed: 12/03/24 Dental Screening Dental Screen Date: 12/03/24 Did you have a dental visit in the last 12 months?: No Did you have a dental problem in the last 6 months where you did not have access to dental care?: No Was dental information given to patient?: Patient declined HPI HPI Comments History of Present Illness Details This is a 59-year-old male with a past medical history of bipolar disorder, seizure disorder, Parkinson disease, mild intermittent asthma, type 2 diabetes, hypertension and hyperlipidemia presenting for follow up. Eight weeks ago I evaluated him for discoloration of the left big toenail. He did not remember a specific injury, but he mentioned tripping a lot due to Parkinson's. There was no numbness, tingling, pain or fevers associated with it. It is looking better. The discoloration is growing out. He did schedule the appointment with Dermatology which is in July 2025 because he also has psoriasis. [place] [facility] [place] He was diagnosed with Parkinsons about 28 years ago. He has a seizure disorder, but his last seizure was a few years ago. He has 2 deep brain stimulators. Patient has chronic urinary incontinence. Hypertension-compliant with medications. He has CKD stage 3 and mild microalbuminuria. His blood pressure is normal today. Hyperlipidemia-he increase the dose of atorvastatin from 20-40 mg because the LDL cholesterol was above goal. He did not have blood work repeated yet. STACI-seen by Dr. Jennings. Psychiatrist-followed by Dr. Mikey Jackson. Asthma-nonsmoker. Denies symptoms. Type 2 diabetes-taking metformin 1500 mg daily. Last hemoglobin A1c 7.1%. Taking atorvastatin 20 mg for hyperlipidemia. No further food impaction issues. Underwent barium swallow study and saw speech pathology for recommendations which he found helpful. Endorses near constant numbness and tingling sensation in the left 4th and 5th digits for the past 2-3 months. No weakness. Denies neck pain associated with it. ROS: Constitutional: No unexplained weight loss, fever, chills Eyes: No vision changes, blurry vision, double vision Respiratory: No shortness of breath, cough or sputum production. Cardiovascular: No chest pain Gastrointestinal: No anorexia, nausea, vomiting or diarrhea. No abdominal pain Neurologic: No headache, dizziness, syncope Physical exam: Constitutional: Alert, in no distress. Neck: Supple, Full range of motion. No lymphadenopathy. Respiratory: Clear to auscultation. Cardiovascular: S1 S2 regular. No murmurs. Neurologic: Ambulates with walker. Dysarthria. Resting hand tremor. Toenail: Blackish/purplish discoloration on the left great toenail has decreased in size and advanced with nailgrowth. There is no swelling, discharge, erythema or tenderness. Hands: Warm and well perfused. Radial pulses intact. Handgrip 5/5 bilaterally. No discoloration. Patient says there is diminished sensation of the 4th and 5th digits on exam. The digits are nontender. Psychiatric: Normal mood and affect Skin: Psoriatic plaques on the upper and lower extremities [facility] Medical History (Updated 10/13/24 @ 10:32 by AYANA Campbell) Nail discoloration Incontinence REM behavioral disorder Diabetes mellitus with microalbuminuria CKD stage 3a, GFR 45-59 ml/min Seizure disorder STACI (obstructive sleep apnea) Elevated creatine kinase BMI 37.0-37.9, adult BMI 33.0-33.9,adult Pure hypercholesterolemia Essential hypertension Bipolar 1 disorder Constipation Psoriasis Depression Asthma Sleep apnea Type 2 diabetes mellitus Parkinson disease Surgical History S/P deep brain stimulator placement Family History Mother Diabetes Gastro-esophageal reflux Heart problem High blood pressure Father Prostate cancer Blood clot in vein Son Autism Food allergy Daughter Generalized anxiety disorder Eosinophilic esophagitis Other Mental health disorder Social History (Updated 12/03/24 @ 14:51 by Fanny Wallace MA) Housing: House Alcohol intake: never Patient Tobacco Use Status: Never used Tobacco e-Cigarette/Vaping Use: Never Used Second Hand Smoke Exposure: No service: No Current occupational status: retired Current occupational exposures/hazards: No Cognitive needs: No Hearing needs: No Vision needs: No Questionnaire Thrive Questionnaire Date Thrive assessed: 06/04/24 I am a: Patient What is your living situation today?: I have a steady place to live Within the past 12 months, did the food you bought not last and you didn't have the money to get more?: Never true Within the past 12 months, did you worry whether your food would run out before you got money to buy more?: Never true Do you have trouble paying for medicines?: No Do you have trouble getting transportation to medical appointments?: No Do you have trouble paying your heating and electricity bill?: No Do you have trouble taking care of your child, family member or friend?: No Do you have trouble with day-to-day activities such as bathing, preparing meals, shopping, managing finances, etc.?: No Are you currently unemployed and looking for a job?: No Are you interested in more education?: No Please select the resources that you would like help with: None Currently or been in a relationship where the following occur: No concerns reported THRIVE Score: 0 DYLAN-7 AMB Questionnaire DYLAN-7 Date DYLAN - 7 assessed: 06/11/24 Source: Developed by Drs. Bowen Zaragoza, Hattie Og, Adonis Stephens and colleagues, with an educational elisha from [employer]. Physical exam (Primary Care) Vital Signs: Last Vital Signs Temp 97.6 F 12/03/24 14:51 Pulse 69 12/03/24 14:51 BP 118/72 12/03/24 14:51 Pulse Ox 97 12/03/24 14:51 Oxygen Delivery Method Room Air 12/03/24 14:51 BMI result Body Mass Index 33.0 Tobacco/Smoking Status: Tobacco use Status Tobacco use date assessed 10/12/24 12/03/24 14:49 Patient Tobacco Use Status Never used Tobacco 12/03/24 14:51 e-Cigarette/Vaping Use Never Used 12/03/24 14:51 Thrive Assessment: Date of Thrive Assessment Date Thrive assessed 06/04/24 12/03/24 14:49 Currently or been in a relationship where the following occur: No concerns reported Coding Level of Care Code Est Pt Level 4 (36482) Complex EM visit Add On G2211 Diagnoses Parkinson's disease, unspecified whether dyskinesia present, unspecified whether manifestations fluctuate G20.A1 Dyskinesia presence: unspecified whether dyskinesia Fluctuating manifestations: unspecified whether manifestations fluctuate Type 2 diabetes mellitus without complication, without long-term current use of insulin E11.9 Diabetes mellitus complication status: without complication Diabetes mellitus shelter insulin use: without emt intermediate use Essential hypertension I10 Bipolar 1 disorder F31.9 Pure hypercholesterolemia E78.00 Seizure disorder G40.909 Nail discoloration L60.8 Assessment & Plan Assessment & Plan (1) Parkinson disease: Code(s): G20 - Parkinson's disease Category: Medical Qualifiers: Dyskinesia presence: unspecified whether dyskinesia Fluctuating manifestations: unspecified whether manifestations fluctuate Qualified Code(s): G20.A1 - Parkinson's disease without dyskinesia, without mention of fluctuations Plan: Continue management per Neurology. (2) Type 2 diabetes mellitus: Code(s): E11.9 - Type 2 diabetes mellitus without complications Category: Medical Qualifiers: Diabetes mellitus complication status: without complication Diabetes mellitus emt intermediate insulin use: without emt intermediate use Qualified Code(s): E11.9 - Type 2 diabetes mellitus without complications Plan: Continue metformin extended release 1500 mg daily. Recommended low carb, low sugar diet. Declined referral to balance weigher. Lifestyle modifications reviewed. (3) Essential hypertension: Code(s): I10 - Essential (primary) hypertension Category: Medical Plan: Continue lisinopril and avoidance of caffeine and follow a low-sodium diet. (4) Bipolar 1 disorder: Code(s): F31.9 - Bipolar disorder, unspecified Category: Medical Plan: Continue current medications per Psychiatry. (5) Pure hypercholesterolemia: Code(s): E78.00 - Pure hypercholesterolemia, unspecified Category: Medical Plan: Continue atorvastatin 40 mg daily. Recommended Mediterranean diet. Check lipid profile. (6) Seizure disorder: Code(s): G40.909 - Epilepsy, unspecified, not intractable, without status epilepticus Category: Medical Plan: Continue treatment regimen per Neurology. (7) Nail discoloration: Code(s): L60.8 - Other nail disorders Category: Medical Plan: Consistent with subungual hematoma. Improved appearance since prior visit. Monitor. Plan Follow up in 3 months. Orders: Orders Hemoglobin A1c Today E11.9 - Type 2 diabetes mellitus without complications Medications: Refilled metformin ER 1,500 mg (3 x 500 mg) PO DAILY 270 tabs 1RF
[2024-12-03 14:51] VITALS: BP 118/72; PULSE 69; TEMP 36.4; O2SAT 97; BMI 33.0
--- OUTSIDE RECORDS SUMMARY | 2024-12-03 14:53 | XMS_ITS | Continuity of Care Document ---
Author Organization [facility] Address [address] [place] [address] Problems Unknown Problems Results Test Value / Unit Interpretation Reference Ran ge Lab Report Tyrell Sands.pd f Allergies, adverse reactions, alerts No known allergies and adverse reactions Medications No administered medications reported Vital Signs No vital signs reported Social History No smoking Hx information available
== END 2024-12-03 15:05 | disposition home or self-care (01) ==
LOC: HO.HMCFM 14:45
PROVIDERS: PCP Physician Assistant Medical; Visit Provider Physician Assistant Medical
DX: G20.A1 Parkinson's disease without dyskinesia, without mention of fluctuations (principal); E11.9 Type 2 diabetes mellitus without complications; F31.9 Bipolar disorder, unspecified; G40.909 Epilepsy, unspecified, not intractable, without status epilepticus; I10 Essential (primary) hypertension; E78.00 Pure hypercholesterolemia, unspecified; L60.8 Other nail disorders

== ENCOUNTER → 2024-12-03 14:44 | Outpatient (BNVA) | payer MEDICARE, MEDICAID, SELFPAY | PROVIDERS: PCP Physician Assistant Medical; Visit Provider Physician Assistant Medical | DX: G20.A1 Parkinson's disease without dyskinesia, without mention of fluctuations (principal); E11.9 Type 2 diabetes mellitus without complications; I10 Essential (primary) hypertension; F31.9 Bipolar disorder, unspecified; E78.00 Pure hypercholesterolemia, unspecified; G40.909 Epilepsy, unspecified, not intractable, without status epilepticus; L60.8 Other nail disorders | CPT/HCPCS: 99212 ==

== ENCOUNTER 2025-04-22 11:00 | Outpatient (AMB) | payer MEDICARE, MEDICAID, SELFPAY ==
--- NOTE | 2025-04-22 11:05 | A.OFFPC_ITS ---
Vital Signs 04/22/25 11:12 Height 5 ft 7 in Weight 200 lb BMI 31.3 BP 128/80 Blood Pressure Location Rt brachial Position Sitting Respiration 15 Pulse 71 Pulse Source Pulse Oximeter Temp 98 F Temp Source Temporal Artery Scan Pulse Oximetry (%) 95 Oxygen Delivery Method Room Air Intake Visit Reasons: Type II Diabetes Intake Note: Tyrell presents in the office today for type II diabetes. Research Aide Required: No Allergies Inhaled Anesthetics (Halogen Based) Allergy (Intermediate, Verified 04/22/25 11:11) rash Medication List - Last Reconciled 04/23/25 by AYANA Campbell albuterol sulfate 90 mcg/actuation 2 inhalations inhalation Q4H PRN atorvastatin 40 mg PO BEDTIME blood sugar diagnostic ([employer] Verio test strips) Use as directed to check blood glucose once daily. blood-glucose meter ([employer] Verio Flex Meter) Use as directed to check blood glucose twice daily. carbidopa-levodopa 25-100 mg 2 tabs PO QID carbidopa-levodopa 50-200 mg ER 1 tab PO BEDTIME donepezil 10 mg PO DAILY entacapone 200 mg PO TID lamotrigine 200 mg PO BID lisinopril 5 mg PO DAILY 90 days melatonin 3 mg PO BEDTIME PRN metformin ER 1,500 mg (3 x 500 mg) PO DAILY miscellaneous medical supply 1 ea miscellaneous .three times daily selegiline HCl 5 mg PO BID walker As directed Tobacco use date assessed: 04/22/25 Dental Screening Dental Screen Date: 04/22/25 Did you have a dental visit in the last 12 months?: No Did you have a dental problem in the last 6 months where you did not have access to dental care?: No Was dental information given to patient?: Patient declined HPI HPI Comments History of Present Illness Details This is a 59-year-old male with a past medical history of bipolar disorder, seizure disorder, Parkinson disease, mild intermittent asthma, type 2 diabetes, hypertension and hyperlipidemia presenting for follow up. Accompanied by his . Psoriasis-Consult with [facility] July 2025. Neurology-Dr. Way at [facility] [place]. He was diagnosed with Parkinsons about 28 years ago. He has a seizure disorder, but his last seizure was a few years ago. He has 2 deep brain stimulators. Patient has chronic urinary incontinence and needs new Rx for large pull ups. Hypertension-compliant with medications. He has CKD stage 3 and mild microalbuminuria. His blood pressure is normal today. Hyperlipidemia-Atorvastatin 40 mg. Started exercising and has lost weight! STACI-seen by Dr. Jennings. Sleep study inconclusive 11/11/24. They will call the office to find out next steps. Psychiatrist-followed by Dr. Mikey Jackson. Asthma-nonsmoker. Denies symptoms. No recent symptoms. Type 2 diabetes-taking metformin 1500 mg daily. A1c 6.2%. No further food impaction issues. Underwent barium swallow study and saw speech pathology for recommendations which he found helpful. ROS: Constitutional: No unexplained weight loss, fever, chills Eyes: No vision changes, blurry vision, double vision Respiratory: No shortness of breath, cough or sputum production. Cardiovascular: No chest pain Gastrointestinal: No anorexia, nausea, vomiting or diarrhea. No abdominal pain Neurologic: No headache, dizziness, syncope Physical exam: Constitutional: Alert, in no distress. Neck: Supple, Full range of motion. No lymphadenopathy. Respiratory: Clear to auscultation. Cardiovascular: S1 S2 regular. No murmurs. Neurologic: Ambulates with walker. Dysarthria. Resting hand tremor. Psychiatric: Normal mood and affect Skin: Psoriatic plaques on the upper and lower extremities [facility] Medical History (Updated 04/23/25 @ 15:13 by AYANA Campbell) Neurogenic urinary incontinence Nail discoloration Incontinence REM behavioral disorder Diabetes mellitus with microalbuminuria CKD stage 3a, GFR 45-59 ml/min Seizure disorder STACI (obstructive sleep apnea) Elevated creatine kinase BMI 37.0-37.9, adult BMI 33.0-33.9,adult Pure hypercholesterolemia Essential hypertension Bipolar 1 disorder Constipation Psoriasis Depression Asthma Sleep apnea Type 2 diabetes mellitus Parkinson disease Surgical History S/P deep brain stimulator placement Family History Mother Diabetes Gastro-esophageal reflux Heart problem High blood pressure Father Prostate cancer Blood clot in vein Son Autism Food allergy Daughter Generalized anxiety disorder Eosinophilic esophagitis Other Mental health disorder Social History (Updated 04/22/25 @ 11:12 by Fanny Wallace CMA) Housing: House Alcohol intake: never Patient Tobacco Use Status: Never used Tobacco e-Cigarette/Vaping Use: Never Used Second Hand Smoke Exposure: No service: No Current occupational status: retired Current occupational exposures/hazards: No Cognitive needs: No Hearing needs: No Vision needs: No Questionnaire Thrive Questionnaire Date Thrive assessed: 06/04/24 I am a: Patient What is your living situation today?: I have a steady place to live Within the past 12 months, did the food you bought not last and you didn't have the money to get more?: Never true Within the past 12 months, did you worry whether your food would run out before you got money to buy more?: Never true Do you have trouble paying for medicines?: No Do you have trouble getting transportation to medical appointments?: No Do you have trouble paying your heating and electricity bill?: No Do you have trouble taking care of your child, family member or friend?: No Do you have trouble with day-to-day activities such as bathing, preparing meals, shopping, managing finances, etc.?: No Are you currently unemployed and looking for a job?: No Are you interested in more education?: No Please select the resources that you would like help with: None Currently or been in a relationship where the following occur: No concerns reported THRIVE Score: 0 DYLAN-7 AMB Questionnaire DYLAN-7 Date DYLAN - 7 assessed: 06/11/24 Source: Developed by Drs. Bowen Zaragoza, Hattie Og, Adonis Stephens and colleagues, with an educational elisha from [employer]. Physical exam (Primary Care) Vital Signs: Last Vital Signs Temp 98 F 04/22/25 11:12 Pulse 71 04/22/25 11:12 Resp 15 04/22/25 11:12 BP 128/80 04/22/25 11:12 Pulse Ox 95 04/22/25 11:12 Oxygen Delivery Method Room Air 04/22/25 11:12 BMI result Body Mass Index 31.3 Tobacco/Smoking Status: Tobacco use Status Tobacco use date assessed 04/22/25 04/22/25 11:15 Patient Tobacco Use Status Never used Tobacco 04/22/25 11:12 e-Cigarette/Vaping Use Never Used 04/22/25 11:12 Thrive Assessment: Date of Thrive Assessment Date Thrive assessed 06/04/24 04/22/25 11:06 Currently or been in a relationship where the following occur: No concerns reported Office Procedures Flu Questionnaire Does the patient have a severe egg allergy?: No Does the patient have severe life threatening allergies?: No Does the patient have a fever or illness today?: No Has the patient ever had Guillain-[place] Syndrome?: No Has the patient ever had any past reaction to a flu shot?: No Results AMB Hemoglobin A1c AMB Hemoglobin A1c 6.2 % Last Edit by Fanny Wallace CMA on 04/22/25 11:21 Immunizations Fluarix [id number] (PF) 45 mcg (15 mcg x 3)/0.5 mL IM syringe Performing Provider: AYANA Campbell Performing Location: [facility] [place] [facility] Medicine Administered by: Fanny Wallace CMA on 04/22/25 11:56 Dose Route Admin Location Dispensed Lot Number Expiration Date NDC Waterworks Supervisor 0.5 mL IM Right Deltoid 0.5 mL [id number] 11/09/25 20389-065-91 [employer] VIS Given Date VIS Provided VIS Publication Date 04/22/25 Single Vaccine 24 Eligibility Eligibility Date Funding Source Not [facility] Eligible 04/22/25 Private Results Reviewed Results Reviewed: Laboratory Last Values Hgb A1c (Clinic) 6.2 % (4.0-6.0) H 04/22/25 11:15 Coding Level of Care Code Est Pt Level 4 (14922) Add On Problem Visit Only Diagnoses Type 2 diabetes mellitus without complication, without long-term current use of insulin E11.9 Diabetes mellitus terminal superintendent insulin use: without terminal superintendent use Diabetes mellitus complication status: without complication Parkinson's disease, unspecified whether dyskinesia present, unspecified whether manifestations fluctuate G20.A1 Dyskinesia presence: unspecified whether dyskinesia Fluctuating manifestations: unspecified whether manifestations fluctuate Essential hypertension I10 Bipolar 1 disorder F31.9 Pure hypercholesterolemia E78.00 Seizure disorder G40.909 Neurogenic urinary incontinence N39.498 Assessment & Plan Assessment & Plan (1) Type 2 diabetes mellitus: Code(s): E11.9 - Type 2 diabetes mellitus without complications Category: Medical Qualifiers: Diabetes mellitus fci insulin use: without terminal superintendent use Diabetes mellitus complication status: without complication Qualified Code(s): E11.9 - Type 2 diabetes mellitus without complications Plan: Continue metformin extended release 1500 mg daily. Recommended low carb, low sugar diet. Declined referral to family life educator. Patient has glucometer. Lifestyle modifications reviewed. (2) Parkinson disease: Code(s): G20 - Parkinson's disease Category: Medical Qualifiers: Dyskinesia presence: unspecified whether dyskinesia Fluctuating manifestations: unspecified whether manifestations fluctuate Qualified Code(s): G20.A1 - Parkinson's disease without dyskinesia, without mention of fluctuations Plan: Continue management per Neurology. (3) Essential hypertension: Code(s): I10 - Essential (primary) hypertension Category: Medical Plan: Continue lisinopril and avoidance of caffeine and follow a low-sodium diet. (4) Bipolar 1 disorder: Code(s): F31.9 - Bipolar disorder, unspecified Category: Medical Plan: Continue current medications per Psychiatry. (5) Pure hypercholesterolemia: Code(s): E78.00 - Pure hypercholesterolemia, unspecified Category: Medical Plan: Continue atorvastatin 40 mg daily. Recommended Mediterranean diet. (6) Seizure disorder: Code(s): G40.909 - Epilepsy, unspecified, not intractable, without status epilepticus Category: Medical Plan: Continue treatment regimen per Neurology. (7) Neurogenic urinary incontinence: Code(s): N39.498 - Other specified urinary incontinence Category: Medical Plan: Fred send rx for pull ups. Plan Follow up in 3 months. Orders: Orders AMB Hemoglobin A1c 04/22/25 E11.9 - Type 2 diabetes mellitus without complications Influenza [id number] Immunization 04/22/25 Z23 - Encounter for immunization Comprehensive Met. Panel 04/22/25 E11.9 - Type 2 diabetes mellitus without complications, N18.31 - Chronic kidney disease, stage 3a Medications: Refilled miscellaneous medical supply 1 ea miscellaneous .three times daily 300 ea 3RF G20.A1 - Parkinson's disease without dyskinesia, without mention of fluctuations, R32 - Unspecified urinary incontinence
[2025-04-22 11:12] VITALS: BP 128/80; PULSE 71; RESP 15; TEMP 36.6; O2SAT 95; BMI 31.3
== END 2025-04-22 12:00 | disposition home or self-care (01) ==
LOC: HO.HMCFM 11:01
PROVIDERS: PCP Physician Assistant Medical; Visit Provider Physician Assistant Medical
DX: E11.9 Type 2 diabetes mellitus without complications (principal); Z23 Encounter for immunization

== ENCOUNTER → 2025-04-22 11:00 | Outpatient (BNVA) | payer MEDICARE, MEDICAID, SELFPAY | PROVIDERS: PCP Physician Assistant Medical; Visit Provider Physician Assistant Medical | DX: E11.9 Type 2 diabetes mellitus without complications (principal); G20.A1 Parkinson's disease without dyskinesia, without mention of fluctuations; I10 Essential (primary) hypertension; E78.00 Pure hypercholesterolemia, unspecified; G40.909 Epilepsy, unspecified, not intractable, without status epilepticus; N39.498 Other specified urinary incontinence; Z23 Encounter for immunization | CPT/HCPCS: 83036; 90471; 90656; 99212 ==